=== PATIENT | male | born 1950 | race Caucasian/White ===

== ENCOUNTER → 2023-06-25 | Outpatient (CLI) | payer MEDICARE, SELFPAY ==
--- OUTSIDE RECORDS SUMMARY | 2023-06-25 10:14 | XMS RPT_ITS | CCD ---
Author Name Unknown Address [address] [place] [address] Organization [facility] Care Team Providers Care Platform Inspector Name Role Phone Jeff Gan Unavailable Benedict Leon Unavailable Unavailable Benedict Leon Unavailable Unavailable Jeff Gan Unavailable Unavailable Benedict Leon Unavailable Unavailable Benedict Leon Unavailable Unavailable Jeff Gan Unavailable Unavailable Jeff Olivera MD Primary Care Provider Jackie Romero MD Unavailable JEFF OLIVERA Primary Care Unavailable ARNULFO UMAÑA Attending Unavailable ARNULFO UMAÑA Referring Unavailable JACKIE ROMERO Admitting Unavailab JACKIE Cedeno Referring Unavailab le JEFF OLIVERA Primary Care Unavailable JACKIE ROMERO Referring Unavailab le JEFF OLIVERA Primary Care Unavailable Jeff Olivera MD Primary Care Provider [phone] Jackie Romero MD Unavailable Jeff Olivera Unavailable Dr. Jeff Olivera Primary Care Unavaila Mildred Benitez Attending Unavailable Joselin, Dr. Jeff Lazar Primary Care Unavaila Mildred Benitez Attending Unavailable Joselin, Dr. Jeff Lazar Primary Care Unavaila Mildred Benitez Attending Unavailable Joselin, Dr. Jeff Lazar Referring Unavaila ble Joselin, Dr. Jeff Lazar Primary Care Unavaila Wisam Whitley Admitting Unavailable Wisam Lou Attending Unavailable Joselin, Dr. Jeff Lazar Primary Care Unavaila Mildred Benitez Attending Unavailable Joselin, Dr. Jeff Lazar Primary Care Unavaila ble Mildred Marquez Attending Unavailable Mildred Marquez Attending Unavailable Dr. Jeff Olivera Primary Care Unavaila ble Joselin, Dr. Jeff Lazar Primary Care Unavaila Mildred Benitez Attending Unavailable Jeff Olivera Primary Care Provider JEFF OLIVERA Primary Care Unavailable AMY ROLLINS II Attending UnavailJeff Tillman MD Primary Care Provider Jackie Romero MD Unavailable ARNULFO UMAÑA Attending Unavailable JEFF OLIVERA Primary Care Unavailable ARNULFO UMAÑA Admitting Unavailable JEFF OLIVERA Primary Care Unavailable ARNULFO UMAÑA Referring Unavailable ARNULFO UMAÑA Referring Unavailable ARNULFO UMAÑA Admitting Unavailable JEFF OLIVERA Primary Care Unavailable KARSON GORE Attending Unavailable JEFF OLIVERA Primary Care Unavailable VIAKARSON Mann Attending Unavailable KARSON GORE Referring Unavailable JEFF OLIVERA Primary Care Unavailable Allergies Allergy Classification Reported Allergen(s) Allergy Type Date of Onset Reaction(s) Facility (7 sources) Penicillins; Translations: [penicillins] Propensity to adverse reactions to drug 5 Swelling [facility] Work Phone: (20 sources) Penicillins Propensity to adverse reactions to drug 5 Swelling, Hives [facility] (4 sources) Penicillins Propensity to adverse reactions to drug 5 Hives, Swelling [facility] Medications Current Medications Medication Drug Class(es) Dates Sig (Normalized) Sig (Original) acetaminophen 325 mg oral tablet (11 sources) take 1 tablet by mouth every six hours as needed for pain acetaminophen (TYLENOL) 325 MG tablet Take 325 mg by mouth every 6 (six) hours as needed for pain. 0 Active aspirin 325 mg delayed release oral tablet (20 sources) Nonsteroidal Anti-inflammatory Drug Start: 09-18-2021 End: 10-18-2021 take 1 tablet by mouth twice daily aspirin 325 MG EC tablet Take 1 (one) tablet (325 mg total) by mouth 2 (two) times a day . 60 tablet 0 09/18/2021 10/18/2021 Active Completed/Discontinued Medications Medication Drug Class(es) Dates Sig (Normalized) Sig (Original) acetaminophen 325 mg / HYDROcodone bitartrate 5 mg oral tablet (5 sources) Opioid Agonist Start: 09-18-2021 End: 09-25-2021 take 1 tablet by mouth once as needed, then take 2 tablets by mouth every four hours as needed HYDROcodone-acetamin ophen (NORCO) 5-325 mg per tablet Indications: Status post total replacement of right hip Take 1 (one) tablet to 2 (two) tablets by mouth every 4 (four) hours as needed 7 days . 40 tablet 0 09/18/2021 09/25/2021 atorvastatin 20 mg oral tablet (20 sources) HMG-CoA Reductase Inhibitor Start: 10-24-2014 atorvastatin (LIPITOR) 20 mg tablet cyclobenzaprine hydrochloride 10 mg oral tablet (8 sources) Muscle Relaxant Start: 09-18-2021 End: 09-28-2021 take 1 tablet by mouth three times daily as needed for muscle spasms cyclobenzaprine (FLEXERIL) 10 MG tablet Take 1 (one) tablet (10 mg total) by mouth 3 (three) times a day as needed for muscle spasms . 30 tablet 0 09/18/2021 09/28/2021 Esomeprazole (1 source) Proton Pump Inhibitor ESOMEPRAZOLE MAGNESIUM (NEXIUM ORAL) Take by mouth. 0 Active Problems Active Problems Problem Classification Problem Date Documented Date Episodic/Chronic Blindness and vision defects (5 sources) Bilateral regular astigmatism; Translations: [Regular astigmatism, bilateral] Onset: 11-23-2014 Episodic Cataract (3 sources) Bilateral pseudophakia; Translations: [Presence of intraocular lens] Onset: 07-23-2018 Chronic Disorders of lipid metabolism (20 sources) Hypercholesterolemia; Translations: [Pure hypercholesterolemia, unspecified] Onset: 11-15-2017 08-08-2021 Chronic Diverticulosis and diverticulitis (1 source) Diverticulosis of large intestine without perforation or abscess without bleeding; Translations: [Dvrtclos of lg int w/o perforation or abscess w/o bleeding] Onset: 03-29-2022 Chronic Essential hypertension (1 source) Hypertensive disorder; Translations: [Essential (primary) hypertension] Chronic Immunizations and screening for infectious disease (1 source) Contact with and (suspected) exposure to other viral communicable diseases; Translations: [Exposure to SARS-associated coronavirus] Episodic Osteoarthritis (20 sources) Osteoarthritis of right hip joint; Translations: [Unilateral primary osteoarthritis, right hip] Onset: 08-14-2021 Chronic Other connective tissue disease (7 sources) History of total hip arthroplasty; Translations: [Presence of right artificial hip joint] Chronic Other connective tissue disease (1 source) Peroneal tendinitis; Translations: [Peroneal tendinitis, left leg] Episodic Other connective tissue disease (8 sources) Heel pain; Translations: [Pain in limb] Episodic Other connective tissue disease (8 sources) Achilles tendinitis; Translations: [Achilles bursitis or tendinitis] Episodic Other connective tissue disease (8 sources) Peroneal tendinitis of left lower limb; Translations: [Other enthesopathy of ankle and tarsus] Episodic Other eye disorders (2 sources) Bilateral vitreous floaters; Translations: [Other vitreous opacities, bilateral] Onset: 07-23-2018 Chronic Other nervous system disorders (8 sources) Antalgic gait; Translations: [Abnormality of gait] Episodic Other non-traumatic joint disorders (1 source) Pain in right hip joint; Translations: [Pain in right hip] Episodic Other non-traumatic joint disorders (8 sources) Ankle stiff; Translations: [Stiffness of joint, not elsewhere classified, ankle and foot] Episodic Other nutritional; endocrine; and metabolic disorders (20 sources) Dyslipidemia; Translations: [Hyperlipidemia, unspecified] Onset: 06-16-2017 06-16-2017 Chronic Residual codes; unclassified (4 sources) Pain, unspecified; Translations: [Pain, unspecified] Onset: 03-07-2022 Episodic Spondylosis; intervertebral disc disorders; other back problems (2 sources) Degeneration of lumbar intervertebral disc; Translations: [Other intervertebral disc degeneration, lumbar region] 02-19-2023 Chronic Past or Other Problems Problem Classification Problem Date Documented Date Episodic/Chronic Other and unspecified benign neoplasm (3 sources) Personal history of colonic polyps; Translations: [Personal history of colonic polyps] Onset: 03-29-2022 Episodic Other connective tissue disease (1 source) Pain in left foot; Translations: [Pain in left foot] Onset: 03-06-2022 Episodic Other connective tissue disease (1 source) Achilles tendinitis, left leg; Translations: [Achilles tendinitis, left leg] Onset: 03-06-2022 Episodic Other connective tissue disease (1 source) Peroneal tendinitis, left leg; Translations: [Peroneal tendinitis, left leg] Onset: 03-06-2022 Episodic Other nervous system disorders (1 source) Other abnormalities of gait and mobility; Translations: [Other abnormalities of gait and mobility] Onset: 03-06-2022 Episodic Other nervous system disorders (1 source) Eyelid finding; Translations: [Fasciculation] Onset: 04-10-2017 04-10-2017 Episodic Other non-traumatic joint disorders (1 source) Stiffness of left ankle, not elsewhere classified; Translations: [Stiffness of left ankle, not elsewhere classified] Onset: 03-06-2022 Episodic Other screening for suspected conditions (not mental disorders or infectious disease) (2 sources) Encounter for screening for malignant neoplasm of colon; Translations: [Encounter for screening for malignant neoplasm of colon] Onset: 03-29-2022 Episodic Residual codes; unclassified (1 source) History of syncope; Translations: [Other specified personal risk factors, not elsewhere classified] Onset: 11-15-2017 11-15-2017 Episodic Residual codes; unclassified (2 sources) Pain Onset: 03-07-2022 Episodic Syncope (20 sources) Vasovagal syncope; Translations: [Syncope and collapse] Onset: 06-16-2017 06-16-2017 Episodic Results Test Name Value Interpretation Reference Range Facil ity Vital Signs Date Time Vital Sign Value Performing Clinician Facility 02-19-2023 09:32-0400 Body height 175.3 cm Karson Gore MD Work Phone: [facility] 10-04-2021 14:47-0400 Body temperature 98.4 [degF] Irish Melendez RN [facility] 10-04-2021 14:47-0400 Diastolic blood pressure 90 mm[Hg] Irish Melendez RN [facility] 10-04-2021 14:47-0400 Heart rate 90 /min Irish Melendez RN [facility] 10-04-2021 14:47-0400 Respiratory rate 18 /min Irish Melendez RN [facility] 10-04-2021 14:47-0400 SaO2% (BldA) [Mass fraction] 96 % Irish Melendez RN [facility] 10-04-2021 14:47-0400 Systolic blood pressure 138 mm[Hg] Irish Nora RN [facility] 10-02-2021 09:06-0400 Body temperature 97.2 [degF] Parmjit Quinones PT [facility] 10-02-2021 09:06-0400 Diastolic blood pressure 76 mm[Hg] Parmjit Quinones PT [facility] 10-02-2021 09:06-0400 Heart rate 90 /min Parmjit Quinones PT [facility] 10-02-2021 09:06-0400 Respiratory rate 16 /min Parmjit Quinones PT [facility] 10-02-2021 09:06-0400 SaO2% (BldA) [Mass fraction] 96 % Parmjit Quinones PT [facility] 10-02-2021 09:06-0400 Systolic blood pressure 126 mm[Hg] Parmjit Quinones PT [facility] 10-01-2021 09:50-0400 Body temperature 98.6 [degF] Narinder [facility] 10-01-2021 09:50-0400 Diastolic blood pressure 78 mm[Hg] Narinder [facility] 10-01-2021 09:50-0400 Heart rate 79 /min Narinder [facility] 10-01-2021 09:50-0400 Respiratory rate 16 /min Narinder [facility] 10-01-2021 09:50-0400 SaO2% (BldA) [Mass fraction] 96 % Narinder [facility] 10-01-2021 09:50-0400 Systolic blood pressure 121 mm[Hg] Narinder [facility] 10-01-2021 09:35-0400 Body temperature 97.9 [degF] [facility] 10-01-2021 09:35-0400 Diastolic blood pressure 70 mm[Hg] [facility] 09:35-0400 Heart rate 74 /min Leigh [facility] 10-01-2021 09:35-0400 Respiratory rate 16 /min [facility]-01-2021 09:35-0400 SaO2% (BldA) [Mass fraction] 99 % [facility]-01-2021 09:35-0400 Systolic blood pressure 132 mm[Hg] Leigh Hernandez LPN [facility] 09-27-2021 12:34-0400 Body temperature 99.19 [degF] Karson Fajardo RN [facility] 09-27-2021 12:34-0400 Diastolic blood pressure 70 mm[Hg] Karson Fajardo RN [facility] 09-27-2021 12:34-0400 Heart rate 89 /min Karson Fajardo RN [facility] 09-27-2021 12:34-0400 Respiratory rate 16 /min Karson Fajardo RN [facility] 09-27-2021 12:34-0400 SaO2% (BldA) [Mass fraction] 98 % Karson Fajardo RN [facility] 09-27-2021 12:34-0400 Systolic blood pressure 142 mm[Hg] Karson Fajardo RN [facility] 09-27-2021 10:49-0400 Body temperature 97.7 [degF] Narinder Juan Diego [employer] [facility] 09-27-2021 10:49-0400 Diastolic blood pressure 78 mm[Hg] Narinder Juan Diego [employer] [facility] 09-27-2021 10:49-0400 Heart rate 95 /min Narinder Juan Diego [employer] [facility] 09-27-2021 10:49-0400 Respiratory rate 16 /min Narinder Juan Diego [employer] [facility] 09-27-2021 10:49-0400 SaO2% (BldA) [Mass fraction] 96 % Narinder Juan Diego [employer] [facility] 09-27-2021 10:49-0400 Systolic blood pressure 136 mm[Hg] Narinder Juan Diego [employer] [facility] 09-21-2021 09:09-0400 Body temperature 97.39 [degF] Parmjit Quinones PT [facility] 09-21-2021 09:09-0400 Diastolic blood pressure 68 mm[Hg] Parmjit Quinones PT [facility] 09-21-2021 09:09-0400 Heart rate 76 /min Parmjit Quinones PT [facility] 09-21-2021 09:09-0400 Respiratory rate 16 /min Parmjit Quinones PT [facility] 09-21-2021 09:09-0400 SaO2% (BldA) [Mass fraction] 94 % Parmjit Quinones PT [facility] 09-21-2021 09:09-0400 Systolic blood pressure 122 mm[Hg] Parmjit Quinones PT [facility] 09-20-2021 09:33-0400 Body height 175.3 cm Larisa Gutierrez RN [facility] 09-20-2021 09:33-0400 Body mass index (BMI) [Ratio] 29.83 kg/m2 Larisa Gutierrez RN [facility] 09-20-2021 09:33-0400 Body temperature 98.4 [degF] Larisa Gutierrez [facility] 09-20-2021 09:33-0400 Body weight 91.63 kg Larisa Gutirerez [facility] 09-20-2021 09:33-0400 Diastolic blood pressure 64 mm[Hg] Larisa Gutierrez [facility] 09-20-2021 09:33-0400 Heart rate 76 /min Larisa Gutierrez [facility] 09-20-2021 09:33-0400 Respiratory rate 16 /min Larisa Gutierrez [facility] 09-20-2021 09:33-0400 SaO2% (BldA) [Mass fraction] 96 % Larisa Gutierrez [facility] 09-20-2021 09:33-0400 Systolic blood pressure 124 mm[Hg] Larisa Gutierrez [facility] 09-06-2021 14:14-0400 Body height 177.8 cm Jackie Romero MD Work Phone: [facility] 09-06-2021 14:14-0400 Body mass index (BMI) [Ratio] 28.84 kg/m2 Jackie Romero MD Work Phone: [facility] 09-06-2021 14:14-0400 Body weight 91.17 kg Jackie Romero MD Work Phone: [facility] 09-06-2021 14:14-0400 Diastolic blood pressure 84 mm[Hg] Jackie Romero MD Work Phone: [facility] 09-06-2021 14:14-0400 Heart rate 70 /min Jackie Romero MD Work Phone: [facility] 09-06-2021 14:14-0400 Systolic blood pressure 134 mm[Hg] Jackie Romero MD Work Phone: [facility] 08-07-2021 13:04-0500 Body height 177.8 cm Arnulfo Umaña CNP Work Phone: [facility] 08-07-2021 13:04-0500 Body mass index (BMI) [Ratio] 29.56 kg/m2 Arnulfo Umaña CNP Work Phone: [facility] 08-07-2021 13:04-0500 Body weight 93.44 kg Arnulfo Umaña CNP Work Phone: [facility] 06-11-2017 12:21-0500 BMI (Body Mass Index) 31.14 kg/m2 Nil[facility] Work Phone: 06-11-2017 12:21-0500 BP Diastolic 82 mm[Hg] [facility] Work Phone: 06-11-2017 12:21-0500 BP Systolic 134 mm[Hg] [facility] Work Phone: 06-11-2017 12:21-0500 Height 177.8 cm [facility] Work Phone: 06-11-2017 12:21-0500 Pulse (Heart Rate) 70 /min [facility] Work Phone: 06-11-2017 12:21-0500 Pulse Oximetry 94 % [facility] Work Phone: 06-11-2017 12:21-0500 Weight 98.43 kg [facility] Work Phone: Encounters Encounter Date Encounter Type Care Provider Facility Start: 02-19-2023 End: 02-20-2023 Refill Karson Gore MD Work Phone: [facility] Procedures Date Procedure Procedure Detail Performing Clinician Start: 03-29-2022 Colonoscopy Amy benoit II, OD Work Phone: Plan of Treatment Date Care Activity Detail Author Start: 02-21-2026 Tetanus vaccination Tetanus: Every 10yrs [facility] Start: 10-14-2023 Colonoscopy COLONOSCOPY [facility] Start: 03-29-2023 COLORECTAL CANCER SCREENING COLORECTAL CANCER SCREENING [facility] Start: 03-04-2023 Fall risk assessment Falls Risk Assessment [facility] Start: 02-14-2023 Influenza vaccination Sequential Influenza Vaccine (#1) [facility] Start: 06-16-2022 ADVANCE DIRECTIVE DISCUSSION ADVANCE DIRECTIVE DISCUSSION [facility] Start: 06-16-2022 DEPRESSION ASSESSMENT DEPRESSION ASSESSMENT [facility] Start: 03-29-2022 COLON, Provider: Wisam Lou, Status: Pen, Time: 10:30 AM COLON, Provider: Wisam Luo, Status: Pen, Time: 10:[address] [facility]: Start: 03-18-2022 PTRECHECKSalvador, Provider: Patricia Otto, Status: Pen, Time: 4:15 PM PTRECHECKA, Provider: Patricia Otto, Status: Pen, Time: 4:[address] [facility] Work Phone: Start: 03-11-2022 PTRECHECKA, Provider: Patricia Otto, Status: Pen, Time: 11:00 AM PTRECHECKA, Provider: Patricia Otto, Status: Pen, Time: 11:[address] [facility] Work Phone: Start: 03-06-2022 PTFUADULT4, Provider: Izzy Nolen, Status: Pen, Time: 7:00 AM PTFUADULT4, Provider: Izzy Nolen, Status: Pen, Time: 7:[address] [facility]: Start: 02-27-2022 PTFUADULT4, Provider: Izzy Nolen, Status: Pen, Time: 7:00 AM PTFUADULT4, Provider: Izzy Nolen, Status: Pen, Time: 7:00 AM [facility]: Start: 02-22-2022 PTFUADULT4, Provider: Brit King, Status: Pen, Time: 7:00 AM PTFUADULT4, Provider: Brit King, Status: Pen, Time: 7:[address] [facility] Work Phone: Start: 02-20-2022 PTFUADULT4, Provider: Izzy Nolen, Status: Pen, Time: 7:00 AM PTFUADULT4, Provider: Izzy Nolen, Status: Pen, Time: 7:[address] [facility] [facility] Work Phone: Start: 02-15-2022 PTFUADULT4, Provider: Brit King, Status: Pen, Time: 7:00 AM PTFUADULT4, Provider: Brit King, Status: Pen, Time: 7:[address] [facility] [facility] Work Phone: Start: 02-14-2022 Influenza vaccination Sequential Influenza Vaccine (#1) [facility] Start: 02-13-2022 PTFUADULT4, Provider: Izzy Nolen, Status: Pen, Time: 7:00 AM PTFUADULT4, Provider: Izzy Nolen, Status: Pen, Time: 7:[address] [facility] Work Phone: Start: 12-14-2021 End: 12-14-2021 Follow-up encounter 12/14/2021 Follow-Up Sports Medicine Jackie Romero MD [place] [id number] [facility] Start: 11-16-2021 End: 11-16-2021 Follow-up encounter 11/16/2021 Follow-Up Sports Medicine [place] [address] [facility] Start: 11-02-2021 End: 11-02-2021 Follow-up encounter 11/02/2021 Follow-Up Sports Medicine [place] [address] [facility] Start: 10-05-2021 End: 10-05-2021 Follow-up encounter 10/05/2021 Follow-Up Sports Medicine Jackie Romero MD [address] [place] [address] [facility] Start: 10-04-2021 End: 10-04-2021 Patient encounter procedure 10/04/2021 Appointment Home Health Services Katerin Delarosa RN [facility] Start: 10-04-2021 End: 10-04-2021 Home visit 10/04/2021 Home Care Visit Home Health Services Parmjit Quinones, PIPO [facility] Start: 10-04-2021 End: 10-04-2021 Patient encounter procedure 10/04/2021 Appointment Home Health Services Katerin Delarosa RN [facility] Start: 10-02-2021 End: 10-02-2021 Home visit [facility] Start: 10-01-2021 End: 10-01-2021 Home visit 10/01/2021 Home Care Visit Home Health Services Katerin Delarosa RN [facility] Start: 10-01-2021 End: 10-01-2021 Home visit 10/01/2021 Home Care Visit Home Health Services Katerin Delarosa RN [facility] Start: 09-27-2021 End: 09-27-2021 Home visit 09/27/2021 Home Care Visit Home Health Services Narinder Adamson PTA [facility] Start: 09-27-2021 End: 09-27-2021 Home visit 09/27/2021 Home Care Visit Home Health Services Katerin Delarosa RN [facility] Start: 09-25-2021 End: 09-25-2021 Home visit 09/25/2021 Home Care Visit Home Health Services Narinder Adamson PTA [facility] Start: 09-24-2021 End: 09-24-2021 Home visit 09/24/2021 Home Care Visit Home Health Services Katerin Delarosa RN [facility] Start: 09-24-2021 End: 09-24-2021 Home visit 09/24/2021 Home Care Visit Home Health Services Katerin Delarosa RN [facility] Start: 09-21-2021 End: 09-21-2021 Home visit 09/21/2021 Home Care Visit Home Health Services Parmjit Quinones, PT [facility] Start: 09-21-2021 End: 09-21-2021 ambulatory 09/21/2021 Treatment Rehabilitation Arnulfo Umaña CNP [address] [place] [address] Candice Lau, PT [facility] Start: 09-18-2021 End: 09-18-2021 Admission to same day surgery center 09/18/2021 Surgery Jackie Romero MD [address] [place] [address] Right Total Hip Replacement [facility] Payers Date Payer Category Payer Medicare [id number] 2016 Medicare MMO MANAGED [facility] C[facility] MMO MANAGED MEDICARE PPO [id number] 2016-Present [phone] [address] [place] [address] [id number] 2012 Unknown 1950 Unknown [id number] 1950 Unknown [id number] [id number] 1950 Unknown [id number] 1950 Unknown [id number] [id number] 1950 Unknown [id number] [id number] 1950 Unknown [id number] [id number] 1950 Unknown [id number] [id number] 1950 Unknown [id number] [id number] 1951 Unknown [id number] [id number] 1951 Unknown [id number] [id number] 1951 Unknown [id number] [id number] 1951 Unknown [id number] [id number] 1950 Unknown [id number] [id number] 1950 Unknown [id number] [id number] 1950 Unknown [id number] [id number]. 1950 Unknown [id number] Social History Date Type Detail Facility Start: 06-11-2017 End: 03-07-2022 Tobacco smoking status MSIS Never smoker [employer] Phone: Start: 1950 Sex Assigned At Not on file [employer] Phone: Start: 06-11-2017 End: 03-07-2022 Tobacco use and exposure Smokeless tobacco non-user [facility] Start: 08-08-2021 End: 02-19-2023 Alcohol intake Current drinker of alcohol (finding) [facility] Start: 07-28-2021 End: 12-14-2021 Exposure to SARS-CoV-2 (event) Not sure [facility] Start: 08-30-2021 History SDOH Alcohol Comment occaional [facility] Start: 09-18-2021 History SDOH Alcohol Comment occasional [facility] Start: 06-11-2017 End: 03-11-2022 Cigarette pack-years [facility] Start: 03-11-2022 Tobacco use panel [facility] Start: 08-06-2021 Gender identity Identifies as male gender (finding) [facility] Start: 08-06-2021 Sexual orientation Heterosexual (finding) [facility] Medical Equipment Procedure Code Equipment Code Equipment Origin al Text Equipment Identifier Dates Head 36mm/-2.5 F em V40 [employer] - [id number] , [id number] [facility] Start: 09-18-2021 Clinical Notes 01-09-2018 to 02-19-2023 Karson Gore MD - 02/19/2023 10:04 AM EDTPatient Kendall Rollins II, OD - 09/18/2022 8:58 AM EDTEsil Landon, ASW SPECIALIST - 10/24/2021 2:40 PM EDTNarratives Note Date & Type Note Facility 02-19-2023 History of Presen t illness Narrative [facility] [address] ([address]) [facility] [address] [facility] [id number] Rosy Munguia is a 73 y.o. male being seen today, 02/19/23, Chief Complaint Patient presents with Lower Back - Pain [chief complaint] low back pain HPI Dictation: This man reports lower back pain over the last year lower back only right-sided no radiculopathy with x-rays showing multilevel lumbar degenerative disc disease loss of his Normal lordotic curve he does take Advil is the only treatment [hpi] should be noted he denies any significant difficulty with standing or walking for any length of time Physical Exam Dictation: [PE] exam increased pain with lumbar extension paraspinal spasm no radicular symptoms Assessment and Plan Dictation: [AP] bar degenerative disc disease no clear evidence of neurogenic claudication plan I did suggest a trial of meloxicam and I will see him back as needed I have reviewed all relevant histories, medications, allergies, and problem list items with Rosy Munguia during this visit. Review of Systems Constitutional: Negative for chills and fever. HENT: Negative for congestion. Respiratory: Negative for shortness of breath. Cardiovascular: Negative for chest pain. Gastrointestinal: Negative for diarrhea, nausea and vomiting. Neurological: Negative for headaches. Psychiatric/Behavioral: Negative for behavioral problems. Ht 5' 9 BMI 29.83 kg/m Imaging: No results found. 1. Lumbar degenerative disc disease Return if symptoms worsen or fail to improve. Karson Gore MD documented in this encounter [facility] 09-18-2022 Note HNO ID: [id number] Author: Amy Rollins II, SARAH Service: ? 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 Z96.1 Pseudophakia, both eyes Comment: Posterior chamber intraocular lenses are well positioned and clear. H43.393 Vitreous floaters of both eyes Comment: Vitreal floaters stable both eyes. Retinas flat and intact with no apparent retinal tear or traction. Monitor yearly. I have confirmed and edited as necessary the relevant ophthalmic history, ROS, and the neuro exam findings as obtained by others. I have seen and examined Rosy Munguia. I have discussed the case and the management of this patient's care with the Resident/Fellow, if applicable. I also have reviewed and agree with the assessment and plan as stated above and agree with all of its relevant components. 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 Z96.1 Pseudophakia, both eyes Comment: Posterior chamber intraocular lenses are well positioned and clear. H43.393 Vitreous floaters of both eyes Comment: Vitreal floaters stable both eyes. Retinas flat and intact with no apparent retinal tear or traction. Monitor yearly. I have confirmed and edited as necessary the relevant ophthalmic history, ROS, and the neuro exam findings as obtained by others. I have seen and examined Rosy Theodore Nella. I have discussed the case and the management of this patient's care with the Resident/Fellow, if applicable. I also have reviewed and agree with the assessment and plan as stated above and agree with all of its relevant components. Amy Rollins II, OD documented in this encounter 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 Z96.1 Pseudophakia, both eyes Comment: Posterior chamber intraocular lenses are well positioned and clear. H43.393 Vitreous floaters of both eyes Comment: Vitreal floaters stable both eyes. Retinas flat and intact with no apparent retinal tear or traction. Monitor yearly. I have confirmed and edited as necessary the relevant ophthalmic history, ROS, and the neuro exam findings as obtained by others. I have seen and examined Rosy Jaimes Nella. I have discussed the case and the management of this patient's care with the Resident/Fellow, if applicable. I also have reviewed and agree with the assessment and plan as stated above and agree with all of its relevant components. Amy Rollins II, OD documented in this encounter [facility] 10-24-2021 History of Presen t illness Narrative I spoke w [place] today and he says he had no drainage yesterday and none today from his right hip incision documented in this encounter [facility] documented in this encounter [id number] Patient's home Progress note* Narratives Pt with new rash that appear ed yesterday to right medial upper thigh. Nurse is coming around noon per patient. documented in this encounter [id number] History of Present illness Narrative* Kate Landon LPN - 09/24/2021 12:13 PM EDT I spoke w [place] today and he says he is doing well. The home care nurse saw him today and changed hisdressing. He is having trouble sleeping at night on his back, he will try to lay on his left side wa pillow between his knees. His swelling is about the same. He was using ice but just started elevation of the foot above his heart yesterday. He denies any constipation, no nausea, no trouble w urination, appetite is good. He is taking 325mg ASA bid, 10mg Flexeril prn, 750mg Levaquin every day [id number] Prilosec every day. documented in this [id number] History of Present illness Narrative* Jackie Romero MD - 09/06/2021 3:09 PM EDT He comes in today for preoperative consultation regarding his right hip degenerative arthrosis. He is looking forward to the surgery. He is tired of the pain, tired of the discomfort. He said he has tried pills, shots, and therapy with no relief whatsoever. The groin pain and thigh pain have becomesevere. It is affecting every single activity of daily living including golfing. X-RAY Examination of the right hip reveals severe end-stage right hip degenerative arthrosis. ALLERGIES Penicillin. MEDICATIONS Aspirin, Lipitor, fenofibrate, Prilosec. ILLNESSES High cholesterol, high triglycerides, stomach reflux. REVIEW OF SYSTEMS Joint pain, arthralgias, hip pain, groin pain, thigh pain, history of a syncopal episode 2008. SURGERIES Appendectomy, cholecystectomy, left total knee replacement. SOCIAL HISTORY He is . Does not drink. PHYSICAL EXAM General: He is awake, alert and oriented x3. Chest: Clear. Heart: Regular rate and rhythm. Abdomen: Benign. Neck: He has no carotid bruits noted. Bilateral Lower Extremities: At this time his bilateral lower extremities are neurologically intactwith 2+ pulses, full range of motion of the ankles knees and the right hip showing pain at 100 degrees of flexion, pain at 10 degrees of internal and external rotation. IMPRESSION Severe right hip degenerative arthrosis. PLAN We will see him for right total hip replacement. All risks and complications were discussed. I havediscussed all treatment options with the patient. The patient was part of the entire decision-making process. I informed the patient we will be using Milo total hip replacement system with [employer] robotic assistance. Mental health status was assessed. Narcotic review was performed. He has no listednarcotics. He is fully vaccinated for COVID-19. documented in this [id number] History of Present illness Narrative* Kelsi Garcia, FIFTH HAND - 08/28/2021 8:30 AM EDT [facility] DAILY TREATMENT NOTE Today's Date 08/28/2021 Patient Name: Rosy Munguia Date of : 1950 Current Visit #: 5 Authorized Visits: 199 Case Name: Osteoarthritis of right hip, History: Pre-Treatment Pain Scale: 7 Symptoms: gradually worsened Functional Diagnosis: 1. Primary osteoarthritis of right hip Clinical Information: Subjective: He was informed he's having his hip replacement on September 18. Joint camp this . Objective His pain yesterday was 11/10 d/t being on his feet for long periods of time. Hip abd strength 4-/5. Treatments: Physical Therapy Exercise Log - 08/28/21 0859 OTHER Precautions/Contraindications R hip prehab Notes verbal HEp (provide written NV) Vitals visit 5: 8:20-9:00 Therapeutic Exercise (15253) Intervention seated forward bending 10 Parameters LTR 5 (back bothering him and stopped at 5 )pain Intervention Hip add /abd x20 GTB /ball squeeze Parameters Traction long axis 10 x3 good relief Intervention standing pelvis rocking side to side 10 Parameters glute squeeze 5 x 10 Intervention Scifit 7' (gentle) Parameters manual lateral distractions x3 30 mild relief Intervention standing gastroc stretch in // bars x5 Parameters rockerboard x20 PT Treatment Times Therex Total Time 38 Direct Treatment Time 38 Total Treatment Time 38 Goals: Physical Therapy Ortho Goals: The patient will safely, correctly and independently demonstrate the ability to perform a progressive HEP to achieve maximal rehabilitation potential and prevent this condition from recurring. The patient will demonstrate reduced pain level 2 points from 4-8/10 at Hip to increase tolerance to do Functional activities. 6 weeks The patient will demonstrate increase Hip IR and ER ROM for ease of hip motion. 6 weeks The patient will demonstrate R Hip strength 5/5 to increase tolerance to perform functional activities without taking frequent rest breaks. 6 weeks. Patient will increase FOTO score to at least 63 (predicted) from 44 to show MDC/MCII and expected functional outcome. 6 weeks Patient Education: Quality of movement with patient demonstrated understanding. Post-Treatment Pain Scale: 7 Assessment: Patient had an expected response to treatment. Skilled Intervention demonstrated by modifications of treatment per exercise log including increased intensity and safety interventions per exercise log. Progress towards goals as expected. Plan for Next Visit: Treatment Visit with focus on further evaluation Kelsi Garcia PTA STATE LICENSE, [id number] documented in this [id number] History of Present illness Narrative* Kelsi Garcia PTA - 08/24/2021 7:45 AM EST [facility] DAILY TREATMENT NOTE Today's Date 08/24/2021 Patient Name: Rosy Munguia Date of : 1950 Current Visit #: 4 Authorized Visits: 199 Case Name: Osteoarthritis of right hip, History: Pre-Treatment Pain Scale: 6 Symptoms: stabilized Functional Diagnosis: 1. Primary osteoarthritis of right hip Clinical Information: Subjective: he's been pushing himself to try and get stronger. Objective Added standing gastroc stretches with good tolerance Treatments: Physical Therapy Exercise Log - 08/24/21 0852 OTHER Precautions/Contraindications R hip prehab Notes verbal HEp (provide written NV) Vitals visit 3: 7:45-8:25 Therapeutic Exercise (77408) Intervention seated forward bending 10 Parameters LTR 5 (back bothering him and stopped at 5 )pain Intervention Hip add /abd x20 GTB /ball squeeze Parameters Traction long axis 10 x3 good relief Intervention standing pelvis rocking side to side 10 Parameters glute squeeze 5 x 10 Intervention Scifit 7' (gentle) Parameters manual lateral distractions x3 30 mild relief Intervention standing gastroc stretch in // bars x5 Parameters rockerboard x20 PT Treatment Times Therex Total Time 38 Direct Treatment Time 38 Total Treatment Time 38 Goals: Physical Therapy Ortho Goals: The patient will safely, correctly and independently demonstrate the ability to perform a progressive HEP to achieve maximal rehabilitation potential and prevent this condition from recurring. The patient will demonstrate reduced pain level 2 points from 4-8/10 at Hip to increase tolerance to do Functional activities. 6 weeks The patient will demonstrate increase Hip IR and ER ROM for ease of hip motion. 6 weeks The patient will demonstrate R Hip strength 5/5 to increase tolerance to perform functional activities without taking frequent rest breaks. 6 weeks. Patient will increase FOTO score to at least 63 (predicted) from 44 to show MDC/MCII and expected functional outcome. 6 weeks Patient Education: Quality of movement with patient demonstrated understanding. Post-Treatment Pain Scale: 4 Assessment: Patient had an expected response to treatment. Skilled Intervention demonstrated by modifications of treatment per exercise log including increased load and safety interventions per exercise log. Progress towards goals as expected. Plan for Next Visit: Treatment Visit with focus on strengthening and stretching Kelsi Garcia PTA STATE LICENSE, [id number] documented in this [id number] History of Present illness Narrative* Kelsi Garcia PTA - 08/21/2021 7:45 AM EST [facility] DAILY TREATMENT NOTE Today's Date 08/21/2021 Patient Name: Rosy Munguia Date of : 1950 Current Visit #: 3 Authorized Visits: 199 Case Name: Osteoarthritis of right hip, History: Pre-Treatment Pain Scale: 8 Symptoms: gradually worsened Functional Diagnosis: 1. Primary osteoarthritis of right hip Clinical Information: Subjective: he has pain with all movements. Walking, ADL's, getting in/out of car. Objective Pain increase with all stretches and transfers. Pain relief with supine position and knees bent. Treatments: Physical Therapy Exercise Log - 08/21/21812 OTHER Precautions/Contraindications R hip prehab Notes verbal HEp (provide written NV) Therapeutic Exercise (92417) Intervention seated forward bending 10 Parameters LTR 5 (back bothering him and stopped at 5 )pain Intervention Hip add 5 x10 (groin pain) Parameters Traction long axis 10 x3 good relief Intervention standing pelvis rocking side to side 10 Parameters glute squeeze 5 x 10 Intervention Scifit 7' (gentle) Parameters manual lateral distractions x3 30 mild relief PT Treatment Times Therex Total Time 30 Direct Treatment Time 30 Total Treatment Time 30 Goals: Physical Therapy Ortho Goals: The patient will safely, correctly and independently demonstrate the ability to perform a progressive HEP to achieve maximal rehabilitation potential and prevent this condition from recurring. The patient will demonstrate reduced pain level 2 points from 4-8/10 at Hip to increase tolerance to do Functional activities. 6 weeks The patient will demonstrate increase Hip IR and ER ROM for ease of hip motion. 6 weeks The patient will demonstrate R Hip strength 5/5 to increase tolerance to perform functional activities without taking frequent rest breaks. 6 weeks. Patient will increase FOTO score to at least 63 (predicted) from 44 to show MDC/MCII and expected functional outcome. 6 weeks Patient Education: Quality of movement with patient demonstrated understanding. Post-Treatment Pain Scale: 8 Assessment: Patient had an expected response to treatment. Skilled Intervention demonstrated by modifications of treatment per exercise log including increased intensity and safety interventions per exercise log. Progress towards goals as expected. Plan for Next Visit: Treatment Visit with focus on pain control Kelsi Garcia PTA STATE LICENSE, [id number] documented in this [id number] History of Present illness Narrative* Tonia Montana PTA - 08/17/2021 7:00 AM EST [facility] DAILY TREATMENT NOTE Today's Date 08/17/2021 Patient Name: Rosy Munguia Date of : 1950 Current Visit #: 2 Authorized Visits: 199 Case Name: Osteoarthritis of right hip, History: Pre-Treatment Pain Scale: 4 Symptoms: gradually worsened Functional Diagnosis: 1. Primary osteoarthritis of right hip Clinical Information: Subjective: Patient reports he was in a lot pain following IE for 2 hours, he took Advil for relief. He admits that is HEP is causing pain. The exercises that provide relief he is completing twice a day. Objective Patient completes exercises per flow sheet. Added glute squeeze and Sci Fit with good tolerance. Patient given HEP handout and verbal instruction. Treatments: Physical Therapy Exercise Log - 08/17/21 0705 OTHER Precautions/Contraindications R hip prehab Notes verbal HEp (provide written NV) Therapeutic Exercise (17929) Intervention seated forward bending 10 Parameters LTR 5 (back bothering him and stopped at 5 ) Intervention Hip add 5 x10 (groin pain) Parameters Traction long axis 10 x3 good relief Intervention standing pelvis rocking side to side 10 Parameters glute squeeze 5 x 10 Intervention Scifit 5' (gentle) PT Treatment Times Therex Total Time 30 Direct Treatment Time 30 Total Treatment Time 30 Goals: Physical Therapy Ortho Goals: The patient will safely, correctly and independently demonstrate the ability to perform a progressive HEP to achieve maximal rehabilitation potential and prevent this condition from recurring. The patient will demonstrate reduced pain level 2 points from 4-8/10 at Hip to increase tolerance to do Functional activities. 6 weeks The patient will demonstrate increase Hip IR and ER ROM for ease of hip motion. 6 weeks The patient will demonstrate R Hip strength 5/5 to increase tolerance to perform functional activities without taking frequent rest breaks. 6 weeks. Patient will increase FOTO score to at least 63 (predicted) from 44 to show MDC/MCII and expected functional outcome. 6 weeks Patient Education: Verbal HEP with patient demonstrated understanding. Post-Treatment Pain Scale: 4 Assessment: Patient had an expected response to treatment. Focused on completing exercises within atolerable range. Relief noted with seated forward trunk bending and sicfit bike. Significant pain with trunk rotation and standing pelvic rocking. Skilled Intervention demonstrated by modifications of treatment per exercise log including increased intensity and safety interventions per exercise log. Progress towards goals as expected. Plan for Next Visit: Treatment Visit with focus on improving therex tolerance, increasing ROM and strength. TONIA MONTANA PTA STATE LICENSE, [id number] documented in this [id number] History of Present illness Narrative* Candice Lau, PT - 08/14/2021 11:30 AM EST Images from the original note were not included. [facility] Evaluation Today's Date 08/14/2021 Patient Name: Rosy Munguia Date of : 1950 Case Name: Osteoarthritis of right hip, Functional Diagnosis: 1. Osteoarthritis of right hip, unspecified osteoarthritis type 2. Primary osteoarthritis of right hip Clinical Information: Subjective Referring Diagnosis: Osteoarthritis of right hip History of Present Illness Subjective History: Pt reports pain in front of R hip from groin to knee started a year ago with worsening now as pain is constant. Pt saw chiropractor 2 months ago for back pain and told him that pain is from hip. Pain on lateral side of R hip goes down to thigh up to knee with standing, walking 20 mins, sitting with knee bend, driving, stairs. Uses heating pad at night with good pain relief. 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 Pain Scale: Pain location: hip (R hip) Average Pain: 4/10 Pain at highest: 8/10 Aggravating factors: weight bearing, sitting long time Easing factors: advil, heating pad at night (good relief) Personal Goals: Wants get new hip Functional Mobility Status Functional Limitations: limited mobility, recent decline in level of ADL and standing patient reported Social Support: Patient lives with others. 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 Zoroastrianism, social, or cultural considerations to be made aware of before starting treatment: No Home Environment: Current Home Environment: Current Entry: steps to enter Sleep Assessment Sleep disturbance: no Sleep Disturbance Barriers to Care: Chronicity or severity of impairments Fall risk screening Fallen 2 or more times in the last 12 months: No (knee gives out after 15 mins of walking ) Injured as a result of a fall in the last 12 months: No Zoroastrianism, social, or cultural considerations to be made aware of before starting treatment: No Lumbar Spine Gait: antalgic Special Tests SLR R limited due to pain in r groin Hip Right Hip Right hip wfl: keeps r leg extended. Tenderness: anterior and greater trochanter Range of Motion: Flexion Active: 110 Abduction Active: 30 IR Active: 10 ER Active: 30 Muscle Strength: Flexion: 4- Extension: 4- Abduction: 3+ IR: 3 ER: 3 Special Tests Tameka: Positive Gait: antalgic Knee Right Knee Right Knee WFL Treatments: Physical Therapy Exercise Log - 08/14/21 1210 OTHER Precautions/Contraindications R hip prehab Notes verbal HEp (provide written NV) Therapeutic Exercise (34951) Intervention seated forward bending 10 Parameters LTR 5 (back bothering him and stopped at 5 ) Intervention Hip add 5 x10 (groin pain) Parameters Traction long axis 10 x3 good relief Intervention standing pelvis rocking side to side 10 Treatment Plan: Frequency of Visits: twice per week Duration: 6 weeks Interventions: Therapeutic Exercise (62279), Manual Therapy (51399), Gait Training (51810) and Hot/Cold Pack (76480) Rehab Potential: fair Goals: Physical Therapy Ortho Goals: The patient will safely, correctly and independently demonstrate the ability to perform a progressive HEP to achieve maximal rehabilitation potential and prevent this condition from recurring. The patient will demonstrate reduced pain level 2 points from 4-8/10 at Hip to increase tolerance to do Functional activities. 6 weeks The patient will demonstrate increase Hip IR and ER ROM for ease of hip motion. 6 weeks The patient will demonstrate R Hip strength 5/5 to increase tolerance to perform functional activities without taking frequent rest breaks. 6 weeks. Patient will increase FOTO score to at least 63 (predicted) from 44 to show MDC/MCII and expected functional outcome. 6 weeks Patient Education provided: Patient was educated about the condition, precautions, and physical therapy plan of care. Clinical Impression: Pt is a 71 y.o. year old male who presented to the clinic with r Hip and thighpain. Upon assessment, pt has been found with the following impairments: Pain, decreased ROM; decreased strength, endurance and coordination; impaired gait, balance, tolerance to do activities. 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 Pt to be discharged from OP PT services if/when goals are met, if they fail to make progress with conservative management in PT, if their level of progress plateaus, or if they do not maintain compliance with attendance or HEP. At this time, it is my clinical judgment that services are medically necessary. Candice Lau PT STATE LICENSE, [id number] documented in this [id number] History of Present illness Narrative* Arnulfo Umaña, [employer] - 08/08/2021 12:32 PM EST Rosy Jaimes Nella 1950 CC: 71 y.o. is a he with right hip pain. Chief Complaint Patient presents with Right Hip - Pain . HPI: Hip Pain Patient presents to the office today with right hip pain. He states that he has had pain on and off for the last year but the last couple of months it is more constant and worsening. Hereports pain in the groin and front of his thigh. He also reports decreased range of motion in the left hip, most difficulty with getting socks and shoes on. He has tried Advil which does help but doesn't keep him pain free. He went to the chiropractor 3 times and then ended up at his pcp office, who ordered x-rays of the hip. He was told that he has arthritis and he needs to follow up with orthopedics. The patient's past medical history, surgical history, social history, family history, medications and allergies were reviewed with the patient today and are available in the chart for further review. PMH: Allergies Allergen Reactions Penicillins Swelling Current Outpatient Medications: aspirin 81 MG EC tablet, Take 81 mg by mouth daily., Disp: , Rfl: atorvastatin (LIPITOR) 20 MG tablet, Take 20 mg by mouth daily., Disp: , Rfl: fenofibrate 160 MG tablet, Take 160 mg by mouth daily Give with food ., Disp: , Rfl: omeprazole (PRILOSEC) 40 MG capsule, Take 40 mg by mouth daily., Disp: , Rfl: Past Medical History: Diagnosis Date Hyperlipidemia Syncope Around 8 episodes since [id number] Past Surgical History: Procedure Laterality Date APPENDECTOMY CHOLECYSTECTOMY TOTAL KNEE REPLACEMENT ( MILO TRIATHALON) Left Social History Socioeconomic History Marital status: Tobacco Use Smoking status: Never Smoker Smokeless tobacco: Never Used Substance and Sexual Activity Alcohol use: Yes Drug use: No ROS: Review of Systems Constitutional: Negative for activity change and fatigue. HENT: Negative for congestion, hearing loss and trouble swallowing. Eyes: Negative for visual disturbance. Respiratory: Negative for chest tightness and shortness of breath. Cardiovascular: Negative for chest pain and palpitations. Gastrointestinal: Negative for abdominal pain, diarrhea, nausea and vomiting. Endocrine: Negative for polydipsia, polyphagia and polyuria. Genitourinary: Negative for decreased urine volume, difficulty urinating and hematuria. Musculoskeletal: Positive for arthralgias, gait problem and myalgias. Negative for joint swelling. Skin: Negative for color change, rash and wound. Allergic/Immunologic: Negative for immunocompromised state. Neurological: Negative for dizziness, weakness, light-headedness and numbness. Hematological: Does not bruise/bleed easily. Psychiatric/Behavioral: Negative for confusion and sleep disturbance. The patient is not nervous/anxious. PE: Physical Exam Constitutional: Appearance: He is well-developed. HENT: Head: Normocephalic. Eyes: Pupils: Pupils are equal, round, and reactive to light. Cardiovascular: Rate and Rhythm: Normal rate and regular rhythm. Pulmonary: Effort: Pulmonary effort is normal. Breath sounds: Normal breath sounds. Abdominal: General: Bowel sounds are normal. Palpations: Abdomen is soft. Musculoskeletal: General: Tenderness present. Cervical back: Normal range of motion and neck supple. Right hip: Decreased range of motion. Decreased strength. Skin: General: Skin is warm and dry. Neurological: Mental Status: He is alert and oriented to person, place, and time. ORTHO: Right Hip Exam Tenderness The patient is experiencing tenderness in the anterior and lateral. Range of Motion Right hip external rotation: 12 degrees with pain. Right hip internal rotation: 8 degrees with pain. Muscle Strength The patient has normal right hip strength. Abduction: 5/5 Adduction: 5/5 Flexion: 5/5 Tests TAMEKA: positive Deidre: negative Other Erythema: absent Scars: absent Sensation: normal Pulse: present Imaging: R Hip: No acute fracture or dislocation. Severe degenerative changes to the right hip. Assessment/Plan: After examination and reviewing of the patient x-ray images, we discussed treatment options. At this time, I did inform the patient that he would most benefit from a right total hip replacement. He is in agreement and wishes to proceed with this as soon as he can. I am starting himin outpatient physical therapy although I don't believe this will be of any help given the severityof the hip. I am concerned that aggressive physical therapy could worsen the hip and lead to increased instability. The office will contact him to schedule his surgery. I am more than happy to see him back if needed prior to his surgery. He verbalizes understanding and is in agreement with the treatment plan. Diagnosis: Problem List Items Addressed This Visit None Visit Diagnoses Osteoarthritis of right hip, unspecified osteoarthritis type - Primary Relevant Orders Ambulatory Ref to [facility] (PT/OT/ST) Right hip pain Follow Up: documented in this [id number] History of Past illness Narrative* Problem Noted Date Resolved Date Corneal epithelial defect 01/09/20182017 Left corneal abrasion 01/08/2018 01/27/2018 Retinal hemorrhage 11/23/2014 04/10/2017 documented as of this encounter (statuses as of 09/18/2022) [facility] Diagnosis Osteoarthritis of right hip, unspecified osteoarthritis type- Primary Right hip pain Pain in joint, pelvic region and thigh [facility] Osteoarthritis of right hip, unspecified osteoarthritis type [facility] Diagnosis Primary oste[facility] of right hip- Primary [facility] Diagnosis Primary osteoarthritis of right hip- Primary [facility] Diagnosis Primary osteoarthritis of right hip- Primary [facility] Diagnosis Osteoarthritis of right hip, unspecified osteoarthritis type- Primary Hypertension, unspecified type Exposure to SARS-associated coronavirus Primary osteoarthritis of right hip- Primary [facility]* Diagnosis Primary osteoarthritis of right hip- Primary Primary osteoarthritis of right hip- Primary Osteoarthritis of right hip, unspecified osteoarthritis type [facility]* Diagnosis Primary osteoarthritis of right hip- Primary Osteoarthritis of right hip, unspecified osteoarthritis type- Primary Osteoarthritis of right hip, unspecified osteoarthritis type [facility]* Diagnosis Status post total replacement of right hip- Primary [facility] Diagnosis Status post total replacement of right hip- Primary [facility] Diagnosis Status post total replacement of right hip- Primary [facility] Diagnosis Status post total replacement of right hip- Primary [facility] Diagnosis Status post total replacement of right hip- Primary [facility] Diagnosis Status post total replacement of right hip- Primary Peroneal tendinitis of lower leg, left [facility] Diagnosis Status post total replacement of right hip- Primary [facility] Diagnosis Regular astigmatism of both eyes- Primary Regular astigmatism Pseudophakia, both eyes Lens replaced by other means Vitreous floaters of both eyes [facility]* Diagnosis Lumbar degenerative disc disease- Primary [facility] Diagnosis Lumbar degenerative disc disease- Primary [facility] Mr. MUNGUIA presents with signs and symptoms consistent with and demonstrates impairments/limitations in . They would benefit from skilled Physical Therapy with combination of manual therapy techniques to decrease myofascial and joint restrictions, as well as progression of exercises for ROM, flexibility, strength, core stabilization, and glute retraining, and body mechanics education throughout POC to progress towards independence with ADL s/IADL s and return to PLOF. * Clinical Presentation: Stable and/or uncomplicated characteristics. * Level of Complexity: low * Problem List: balance, decreased functional level, fall risk, flexibility, gait/locomotion, motor function/control/tone, pain, participation restrictions, posture, range of motion/joint mobility, strength and transfers. [facility] Work Phone: History of Present illness Narrative* Mr. MUNGUIA presents with signs and symptoms consistent with Left achilles and peroneal tendinitis,Left heel pain, and stiffness in Left ankle with Antalgic gait and demonstrates impairments/limitations in Left ankle AROM/PROM, decreased flexibility at gastroc/soleus complex, mild decrease in MMT at Left foot/ankle musculature compared to Right. Significant myofascial restriction throughout Leftlower leg musculature, most notably in peroneals, posterior tib, and plantar fascia, as well as gastroc/soleus complex. Pt responded well to brief STM performed after eval this date and reported goodunderstanding of all edu and HEP with HO given. They would benefit from skilled Physical Therapy with combination of manual therapy techniques to decrease myofascial and joint restrictions, as well as progression of exercises for ROM, flexibility, strength, core stabilization, and glute retraining,and body mechanics education throughout POC to progress towards independence with ADL s/IADL s and return to PLOF. * Clinical Presentation: Stable and/or uncomplicated characteristics. * Level of Complexity: low * Problem List: activity limitations, ADLs/IADLs/self care skills, balance, decreased functional level, fall risk, flexibility, gait/locomotion, motor function/control/tone, pain, participation restrictions, posture, range of motion/joint mobility, strength and transfers. [facility] Work Phone: History of Present illness NarrativePatient identified by name and date of . Patient required fingertip assistance to maintain balance with SLS with moderate sway noted. He was able to progress with addition standing balance activities and resisted toe crunches. He presented with palpable tension in plantar of foot with increasein his heal area this date. Applied tape this date with use of adhesive spray. [facility] Work Phone: History of Present illness Narrative* Patient identified by name and * Patient appropriately challenged. Patient tolerates progressions with mild fatigue noted throughoutstanding exercises. Patient demo's toe touch during SLS and able to self correct with fingertip assist. Applied KT tape this date with adhesive spray. [facility] Work Phone: History of Present illness NarrativePatient identified by name and date of . Patient demonstrated good tolerance to treatment. He presented with palpable tension/adhesions in plantar of L foot that responded well to STW. He reviewed HEP and use of ice he demonstrated good understanding. Applied KT tape this date with adhesive spray per patient request he reported he feels increased stability with tape applied. [facility] [employer] Work Phone: History of Present illness NarrativePatient identified by name and date of . Patient demonstrated tenderness to the touch above calcaneus back to achilles this date. He presented with decreased adhesions/tension in plantar of L foot and demonstrated increased tolerance with STW. He was able to progress with use of Airex with balance activities this date and required cues to preform to resisted toe curls with proper form and rep s. Instructed and provided handout for ice massage, he verbalized good understanding. [facility] Work Phone: patient's home Plan of care note* Visit Details Visit Type -SN HH OASIS [place] t of Care Discipline -Assisted Problems Problem Start Date Status Goals Interventions Assess and Instruct Home Visit Disciplines: Assisted 09/20/2021 Active 1 goal linked to scheduled/documented intervention 4 goal interventions scheduled/documented in this visit Medication Management Disciplines: Assisted 09/20/2021 Active 1 goal linked to scheduled/documented intervention 1 problem intervention scheduled/documented in this visit 1 goal intervention scheduled/documented in this visit Pain Management Disciplines: Assisted 09/20/2021 Active 1 goal linked to scheduled/documented intervention 1 goal intervention scheduled/documented in this visit Wound Care and/or Skin Problems Disciplines: Assisted 09/20/2021 Active 1 goal linked to scheduled/documented intervention 1 goal intervention scheduled/documented in this visit Gastrointestinal Disciplines: Assisted 09/20/2021 Active 1 goal linked to scheduled/documented intervention 1 goal intervention scheduled/documented in this visit Circulation Disciplines: Assisted 09/20/2021 Active 1 goal linked to scheduled/documented intervention 1 goal intervention scheduled/documented in this visit Goals Goal Associated Problem Outcome Goal Met? Visit Notes Home Care Plan Assess and Instruct Home Visit No Medications Medication Management No Pain Pain Management No Wound/Incision Wound Care and/or Skin Problems No Gastrointestinal Gastrointestinal No Circulation Circulation No Interventions Intervention Associated Problem/Goal Status Variance Visit Notes Falls Problem:Assess and Instruct Home Visit Goal:Home Care Plan Completed Clinician taught: patient and caregiver 4-10 Patient IS at risk for falls (a score of 6 or greater is a predictor of future falls) and clinician instructed: proper footwear, improved lighting, remove clutter and throw rugs, safe cord/tubing management (O2, IV, Electrical, Pineda), assistive device usage and keep frequently used items in reach Patient/caregiver was able to demonstrate 75% via teachback Safety Problem:Assess and Instruct Home Visit Goal:Home Care Plan Completed Assessed patient vulnerability and home safety risks: Yes Equipment reviewed walker Patient at risk for harm or abuse No Family members involved in safety plan for Level 2 or 3 Discharge Planning Problem:Assess and Instruct Home Visit Goal:Home Care Plan Completed Home Visit DC Planning: Spoke with patient and caregiver about DC planning. Assessed for limited ambulation related to post-op pain and weakness DC will occur when: patient/caregiver can teach back care Anticipate DC: Early Patient and/or caregiver response to discharge planning education: Agree Plan for Next Visit Problem:Assess and Instruct Home Visit Goal:Home Care Plan Completed Follow up education for next visit: Medications Skilled intervention at next visit: CP/wound assesment. Instruct Medication Management Problem:Medication Management Goal:Medications Completed Home Visit Med Education: Medication list reconciled. Medication profile and in-home medication list updated with appropriate changes. Discrepanices noted during home visit: none Instructed patient on dosing, purpose, and side effects. Medication education completed today on all medication(s). Patient/caregiver is able to teach back 75% of instruction. Education, bleeding precautions Problem:Medication Management Completed Assess Pain Characteristics and Current Pain Regimen and Instruct Methods of Pain Relief Problem:Pain Management Goal:Pain Completed Wound/Incision Problem:Wound Care and/or Skin Problems Goal:Wound/Incision Completed Patient reports: dressing intact Clinician taught: patient and caregiver Clinician instructed on: When to call for change Patient/caregiver is able to teach back/demonstrate given instruction including signs and symptoms of infection. Instruct Alteration in GI Function Problem:Gastrointest inal Goal:Gastrointestina l Completed Patient reports: bm yesterday Clinician taught: patient and caregiver Clinician instructed on: management Patient/caregiver is able to teach back 75% of instruction. Instruct on Alteration in Circulation Problem:Circulation Goal:Circulation Completed Patient reports: right leg edema Clinician taught: patient and caregiver Clinician instructed on: ice and elevation Patient/caregiver is able to teach back 75% of instruction. [facility]* Visit Details Visit Type -SN OASIS [place] t of Care Discipline -Assisted Problems Problem Start Date Status Goals Interventions Assess and Instruct Home Visit Disciplines: Assisted 09/20/2021 Active 1 goal linked to scheduled/documented intervention 4 goal interventions scheduled/documented in this visit Medication Management Disciplines: Assisted 09/20/2021 Active 1 goal linked to scheduled/documented intervention 1 problem intervention scheduled/documented in this visit 1 goal intervention scheduled/documented in this visit Pain Management Disciplines: Assisted 09/20/2021 Active 1 goal linked to scheduled/documented intervention 1 goal intervention scheduled/documented in this visit Wound Care and/or Skin Problems Disciplines: Assisted 09/20/2021 Active 1 goal linked to scheduled/documented intervention 1 goal intervention scheduled/documented in this visit Gastrointestinal Disciplines: Assisted 09/20/2021 Active 1 goal linked to scheduled/documented intervention 1 goal intervention scheduled/documented in this visit Circulation Disciplines: Assisted 09/20/2021 Active 1 goal linked to scheduled/documented intervention 1 goal intervention scheduled/documented in this visit Goals Goal Associated Problem Outcome Goal Met? Visit Notes Home Care Plan Assess and Instruct Home Visit No Medications Medication Management No Pain Pain Management No Wound/Incision Wound Care and/or Skin Problems No Gastrointestinal Gastrointestinal No Circulation Circulation No Interventions Intervention Associated Problem/Goal Status Variance Visit Notes Falls Problem:Assess and Instruct Home Visit Goal:Home Care Plan Completed Clinician taught: patient and caregiver 4-10 Patient IS at risk for falls (a score of 6 or greater is a predictor of future falls) and clinician instructed: proper footwear, improved lighting, remove clutter and throw rugs, safe cord/tubing management (O2, IV, Electrical, Pineda), assistive device usage and keep frequently used items in reach Patient/caregiver was able to demonstrate 75% via teachback Safety Problem:Assess and Instruct Home Visit Goal:Home Care Plan Completed Assessed patient vulnerability and home safety risks: Yes Equipment reviewed walker Patient at risk for harm or abuse No Family members involved in safety plan for Level 2 or 3 Discharge Planning Problem:Assess and Instruct Home Visit Goal:Home Care Plan Completed Home Visit DC Planning: Spoke with patient and caregiver about DC planning. Assessed for limited ambulation related to post-op pain and weakness DC will occur when: patient/caregiver can teach back care Anticipate DC: Early Patient and/or caregiver response to discharge planning education: Agree Plan for Next Visit Problem:Assess and Instruct Home Visit Goal:Home Care Plan Completed Follow up education for next visit: Medications Skilled intervention at next visit: CP/wound assesment. Instruct Medication Management Problem:Medication Management Goal:Medications Completed Home Visit Med Education: Medication list reconciled. Medication profile and in-home medication list updated with appropriate changes. Discrepanices noted during home visit: none Instructed patient on dosing, purpose, and side effects. Medication education completed today on all medication(s). Patient/caregiver is able to teach back 75% of instruction. Education, bleeding precautions Problem:Medication Management Completed Assess Pain Characteristics and Current Pain Regimen and Instruct Methods of Pain Relief Problem:Pain Management Goal:Pain Completed Wound/Incision Problem:Wound Care and/or Skin Problems Goal:Wound/Incision Completed Patient reports: dressing intact Clinician taught: patient and caregiver Clinician instructed on: When to call for change Patient/caregiver is able to teach back/demonstrate given instruction including signs and symptoms of infection. Instruct Alteration in GI Function Problem:Gastrointest inal Goal:Gastrointestina l Completed Patient reports: bm yesterday Clinician taught: patient and caregiver Clinician instructed on: management Patient/caregiver is able to teach back 75% of instruction. Instruct on Alteration in Circulation Problem:Circulation Goal:Circulation Completed Patient reports: right leg edema Clinician taught: patient and caregiver Clinician instructed on: ice and elevation Patient/caregiver is able to teach back 75% of instruction. documented in this encounter [facility] [place] Plan of care note* Visit Details Visit Type -PT Initial Evalu ation Discipline -Physical Therapy Problems Problem Start Date Status Goals Interventions Assess and Instruct Home Visit Disciplines: Physical Therapy 09/21/2021 Active 2 goals linked to scheduled/documented interventions 4 goal interventions scheduled/documented in this visit Goals Goal Associated Problem Outcome Goal Met? Visit Notes Medications Assess and Instruct Home Visit No Home Care Plan Assess and Instruct Home Visit No Interventions Intervention Associated Problem/Goal Status Variance Visit Notes Instruct Medication Management Problem:Assess and Instruct Home Visit Goal:Medications Scheduled Falls Problem:Assess and Instruct Home Visit Goal:Home Care Plan Scheduled Safety Problem:Assess and Instruct Home Visit Goal:Home Care Plan Scheduled Plan for Next Visit Problem:Assess and Instruct Home Visit Goal:Home Care Plan Scheduled documented in this encounter [facility] Plan of care note* Visit Details Visit Type -SN HH Routine Vi sit Discipline -Assisted Problems Problem Start Date Status Goals Interventions Assess and Instruct Home Visit Disciplines: Assisted 09/20/2021 Active 1 goal linked to scheduled/documented intervention 4 goal interventions scheduled/documented in this visit Medication Management Disciplines: Assisted 09/20/2021 Active 1 goal linked to scheduled/documented intervention 1 problem intervention scheduled/documented in this visit 1 goal intervention scheduled/documented in this visit Pain Management Disciplines: Assisted 09/20/2021 Active 1 goal linked to scheduled/documented intervention 1 goal intervention scheduled/documented in this visit Wound Care and/or Skin Problems Disciplines: Assisted 09/20/2021 Active 1 goal linked to scheduled/documented intervention 1 goal intervention scheduled/documented in this visit Gastrointestinal Disciplines: Assisted 09/20/2021 Active 1 goal linked to scheduled/documented intervention 1 goal intervention scheduled/documented in this visit Circulation Disciplines: Assisted 09/20/2021 Active 1 goal linked to scheduled/documented intervention 1 goal intervention scheduled/documented in this visit Goals Goal Associated Problem Outcome Goal Met? Visit Notes Home Care Plan Assess and Instruct Home Visit No Medications Medication Management No Pain Pain Management No Wound/Incision Wound Care and/or Skin Problems No Gastrointestinal Gastrointestinal No Circulation Circulation No Interventions Intervention Associated Problem/Goal Status Variance Visit Notes Falls Problem:Assess and Instruct Home Visit Goal:Home Care Plan Completed Clinician taught: patient and caregiver 4-10 Patient IS at risk for falls (a score of 6 or greater is a predictor of future falls) and clinician instructed: assistive device usage, keep frequently used items in reach and emergency response system and/or keep phone on you Patient/caregiver was able to demonstrate 100% via teachback Safety Problem:Assess and Instruct Home Visit Goal:Home Care Plan Completed Assessed patient vulnerability and home safety risks: none Equipment reviewed walker Patient at risk for harm or abuse no Family members involved in safety plan for Level 2 or 3 n/a Discharge Planning Problem:Assess and Instruct Home Visit Goal:Home Care Plan Completed Planned discharge from next . Pt has f/u with Dr Romero next Friday. Plan for Next Visit Problem:Assess and Instruct Home Visit Goal:Home Care Plan Completed CP assess, VS, monitor dressing/wound care, medication education Instruct Medication Management Problem:Medication Management Goal:Medications Completed Home Visit Med Education: Medication list reconciled. Medication profile and in-home medication list updated with appropriate changes. Discrepanices noted during home visit: none Instructed patient on dosing, purpose, and side effects. Medication education completed today on all medication(s). Patient/caregiver is able to teach back 100% of instruction. Education, bleeding precautions Problem:Medication Management Completed Assess Pain Characteristics and Current Pain Regimen and Instruct Methods of Pain Relief Problem:Pain Management Goal:Pain Completed Wound/Incision Problem:Wound Care and/or Skin Problems Goal:Wound/Incision Completed The Aquacel Ag/Mepilex Ag dressing is a non-removable dressing per Dr Romero's orders, and is only allowed to be changed d/t large amounts of drainage or the dressing's adhesive is failing, compromising the surgical site. Pt allowed to shower with dressing intact. Instruct Alteration in GI Function Problem:Gastrointest inal Goal:Gastrointestina l Completed Pt reports no GI issues. Instruct on Alteration in Circulation Problem:Circulation Goal:Circulation Completed Pt instructed on recognizing and managing signs and symptoms of lower leg edema. [facility] Visit Details Visit Type -FIFTH HAND Routine Visi t Discipline -Physical Therapy Problems Problem Start Date Status Goals Interventions Assess and Instruct Home Visit Disciplines: Physical Therapy 09/21/2021 Active 3 goals linked to scheduled/documented interventions 5 goal interventions scheduled/documented in this visit Disease-Specific Rehabilitation Disciplines: Physical Therapy 09/21/2021 Active 1 goal linked to scheduled/documented intervention 1 goal intervention scheduled/documented in this visit Mobility Disciplines: Physical Therapy 09/21/2021 Active 1 goal linked to scheduled/documented intervention 1 goal intervention scheduled/documented in this visit Goals Goal Associated Problem Outcome Goal Met? Visit Notes Pain Assess and Instruct Home Visit No Medications Assess and Instruct Home Visit No Home Care Plan Assess and Instruct Home Visit No Balance Disease-Specific Rehabilitation No Mobility Mobility No Interventions Intervention Associated Problem/Goal Status Variance Visit Notes Pain Management Problem:Assess and Instruct Home Visit Goal:Pain Completed Patient reports: right hip pain Clinician taught: patient Clinician instructed on: pain modulation Patient/caregiver is able to teach back 100% of instruction. Instruct Medication Management Problem:Assess and Instruct Home Visit Goal:Medications Completed Home Visit Med Education: Medication list reconciled. Medication profile and in-home medication list updated with appropriate changes. Discrepanices noted during home visit: none Instructed patient on dosing, purpose, and side effects. Medication education completed today on no change in medication(s). Patient/caregiver is able to teach back 100% of instruction. Falls Problem:Assess and Instruct Home Visit Goal:Home Care Plan Completed Clinician taught: patient 4-10 Patient IS at risk for falls (a score of 6 or greater is a predictor of future falls) and clinician instructed: proper footwear, improved lighting, remove clutter and throw rugs, safe cord/tubing management (O2, IV, Electrical, Pineda), non-slip mats in tubs/showers, handrails/grab bar placement, assistive device usage, keep frequently used items in reach and emergency response system and/or keep phone on you and see TUG Test Patient/caregiver was able to demonstrate 100% via teachback Safety Problem:Assess and Instruct Home Visit Goal:Home Care Plan Completed Assessed patient vulnerability and home safety risks: yes Equipment reviewed yes Patient at risk for harm or abuse no Family members involved in safety plan for Level 2 or 3 Plan for Next Visit Problem:Assess and Instruct Home Visit Goal:Home Care Plan Completed Follow up education for next visit: amb program Skilled intervention at next visit: gait training Balance/Neuromuscular Re-education Problem:Disease-Specif ic Rehabilitation Goal:Balance Completed Patient reports: no falls Clinician taught: patient Clinician instructed on: see TUG test Patient/caregiver is able to teach back 100% of instruction. Instruct Mobility Problem:Mobility Goal:Mobility Completed Patient reports: no recent falls Clinician taught: patient Clinician instructed on: gait training completed to improve kinematics and household ambulation to decrease risk for falls and improve endurance. Skilled transfer training completed to maximize pt safety, increase functional independence, and to decrease falls risk. Patient/caregiver is able to teach back 100% of instruction. [facility] Visit Details Visit Type -ASW SPECIALIST Routine Discipline -Assisted Problems Problem Start Date Status Goals Interventions Assess and Instruct Home Visit Disciplines: Assisted 09/20/2021 Active 1 goal linked to scheduled/documented intervention 4 goal interventions scheduled/documented in this visit Medication Management Disciplines: Assisted 09/20/2021 Active 1 goal linked to scheduled/documented intervention 1 problem intervention scheduled/documented in this visit 1 goal intervention scheduled/documented in this visit Pain Management Disciplines: Assisted 09/20/2021 Active 1 goal linked to scheduled/documented intervention 1 goal intervention scheduled/documented in this visit Goals Goal Associated Problem Outcome Goal Met? Visit Notes Home Care Plan Assess and Instruct Home Visit No Medications Medication Management No Pain Pain Management No Interventions Intervention Associated Problem/Goal Status Variance Visit Notes Falls Problem:Assess and Instruct Home Visit Goal:Home Care Plan Completed Clinician taught: patient and caregiver 4-10 Patient IS at risk for falls (a score of 6 or greater is a predictor of future falls) and clinician instructed: proper footwear, improved lighting, remove clutter and throw rugs, safe cord/tubing management (O2, IV, Electrical, Pineda), non-slip mats in tubs/showers, handrails/grab bar placement, assistive device usage, keep frequently used items in reach and emergency response system and/or keep phone on you Patient/caregiver was able to demonstrate % via teachback Safety Problem:Assess and Instruct Home Visit Goal:Home Care Plan Completed Discharge Planning Problem:Assess and Instruct Home Visit Goal:Home Care Plan Completed Plan for Next Visit Problem:Assess and Instruct Home Visit Goal:Home Care Plan Completed Follow up education for next visit: Skilled intervention at next visit: Instruct Medication Management Problem:Medication Management Goal:Medications Completed Home Visit Med Education: Medication list reconciled. Medication profile and in-home medication list updated with appropriate changes. Discrepanices noted during home visit: none Instructed patient on dosing, purpose, and side effects. Medication education completed today on all medication(s). Patient/caregiver is able to teach back % of instruction. Education, bleeding precautions Problem:Medication Management Completed Assess Pain Characteristics and Current Pain Regimen and Instruct Methods of Pain Relief Problem:Pain Management Goal:Pain Completed [facility] Visit Details Visit Type -FIFTH HAND Routine Visi t Discipline -Physical Therapy Problems Problem Start Date Status Goals Interventions Assess and Instruct Home Visit Disciplines: Physical Therapy 09/21/2021 Active 3 goals linked to scheduled/documented interventions 5 goal interventions scheduled/documented in this visit Disease-Specific Rehabilitation Disciplines: Physical Therapy 09/21/2021 Active 1 goal linked to scheduled/documented intervention 1 goal intervention scheduled/documented in this visit Mobility Disciplines: Physical Therapy 09/21/2021 Active 1 goal linked to scheduled/documented intervention 1 goal intervention scheduled/documented in this visit Goals Goal Associated Problem Outcome Goal Met? Visit Notes Pain Assess and Instruct Home Visit No Medications Assess and Instruct Home Visit No Home Care Plan Assess and Instruct Home Visit No Balance Disease-Specific Rehabilitation No Mobility Mobility No Interventions Intervention Associated Problem/Goal Status Variance Visit Notes Pain Management Problem:Assess and Instruct Home Visit Goal:Pain Completed Patient reports: denies pain Clinician taught: patient Clinician instructed on: denies pain Patient/caregiver is able to teach back 100% of instruction. Instruct Medication Management Problem:Assess and Instruct Home Visit Goal:Medications Completed Home Visit Med Education: Medication list reconciled. Medication profile and in-home medication list updated with appropriate changes. Discrepanices noted during home visit: none Instructed patient on dosing, purpose, and side effects. Medication education completed today on no change in medication(s). Patient/caregiver is able to teach back 100% of instruction. Falls Problem:Assess and Instruct Home Visit Goal:Home Care Plan Completed Clinician taught: patient 4-10 Patient IS at risk for falls (a score of 6 or greater is a predictor of future falls) and clinician instructed: proper footwear, improved lighting, remove clutter and throw rugs, safe cord/tubing management (O2, IV, Electrical, Pineda), non-slip mats in tubs/showers, handrails/grab bar placement, assistive device usage, keep frequently used items in reach and emergency response system and/or keep phone on you and pt with recent THR Patient/caregiver was able to demonstrate 100% via teachback Safety Problem:Assess and Instruct Home Visit Goal:Home Care Plan Completed Assessed patient vulnerability and home safety risks: yes Equipment reviewed yes Patient at risk for harm or abuse no Family members involved in safety plan for Level 2 or 3 Plan for Next Visit Problem:Assess and Instruct Home Visit Goal:Home Care Plan Completed Follow up education for next visit: PT D/C Skilled intervention at next visit: PT D/C Balance/Neuromuscular Re-education Problem:Disease-Specif ic Rehabilitation Goal:Balance Completed Patient reports: no falls Clinician taught: patient Clinician instructed on: see TUG test Patient/caregiver is able to teach back 100% of instruction. Instruct Mobility Problem:Mobility Goal:Mobility Completed Patient reports: no falls Clinician taught: patient Clinician instructed on: gait training completed to improve kinematics and household ambulation to decrease risk for falls and improve endurance. Skilled transfer training completed to maximize pt safety, increase functional independence, and to decrease falls risk. Patient/caregiver is able to teach back 100% of instruction. [facility] Visit Details Visit Type -FIFTH HAND Routine Visi t Discipline -Physical Therapy Problems Problem Start Date Status Goals Interventions Assess and Instruct Home Visit Disciplines: Physical Therapy 09/21/2021 Active 3 goals linked to scheduled/documented interventions 5 goal interventions scheduled/documented in this visit Disease-Specific Rehabilitation Disciplines: Physical Therapy 09/21/2021 Active 1 goal linked to scheduled/documented intervention 1 goal intervention scheduled/documented in this visit Mobility Disciplines: Physical Therapy 09/21/2021 Active 1 goal linked to scheduled/documented intervention 1 goal intervention scheduled/documented in this visit Goals Goal Associated Problem Outcome Goal Met? Visit Notes Pain Assess and Instruct Home Visit No Medications Assess and Instruct Home Visit No Home Care Plan Assess and Instruct Home Visit No Balance Disease-Specific Rehabilitation No Mobility Mobility No Interventions Intervention Associated Problem/Goal Status Variance Visit Notes Pain Management Problem:Assess and Instruct Home Visit Goal:Pain Completed Patient reports: denies pain Clinician taught: patient Clinician instructed on: denies pain Patient/caregiver is able to teach back 100% of instruction. Instruct Medication Management Problem:Assess and Instruct Home Visit Goal:Medications Completed Home Visit Med Education: Medication list reconciled. Medication profile and in-home medication list updated with appropriate changes. Discrepanices noted during home visit: none Instructed patient on dosing, purpose, and side effects. Medication education completed today on no change in medication(s). Patient/caregiver is able to teach back 100% of instruction. Falls Problem:Assess and Instruct Home Visit Goal:Home Care Plan Completed Clinician taught: patient 4-10 Patient IS at risk for falls (a score of 6 or greater is a predictor of future falls) and clinician instructed: proper footwear, improved lighting, remove clutter and throw rugs, safe cord/tubing management (O2, IV, Electrical, Pineda), non-slip mats in tubs/showers, handrails/grab bar placement, assistive device usage, keep frequently used items in reach and emergency response system and/or keep phone on you and pt with recent THR Patient/caregiver was able to demonstrate 100% via teachback Safety Problem:Assess and Instruct Home Visit Goal:Home Care Plan Completed Assessed patient vulnerability and home safety risks: yes Equipment reviewed yes Patient at risk for harm or abuse no Family members involved in safety plan for Level 2 or 3 Plan for Next Visit Problem:Assess and Instruct Home Visit Goal:Home Care Plan Completed Follow up education for next visit: PT D/C Skilled intervention at next visit: PT D/C Balance/Neuromuscular Re-education Problem:Disease-Specif ic Rehabilitation Goal:Balance Completed Patient reports: no falls Clinician taught: patient Clinician instructed on: see TUG test Patient/caregiver is able to teach back 100% of instruction. Instruct Mobility Problem:Mobility Goal:Mobility Completed Patient reports: no falls Clinician taught: patient Clinician instructed on: gait training completed to improve kinematics and household ambulation to decrease risk for falls and improve endurance. Skilled transfer training completed to maximize pt safety, increase functional independence, and to decrease falls risk. Patient/caregiver is able to teach back 100% of instruction. [facility] Visit Details Visit Type -PT Non-OASIS/Dis cipl Discharge Discipline -Physical Therapy Problems Problem Start Date Status Goals Interventions Assess and Instruct Home Visit Disciplines: Physical Therapy 09/21/2021 Resolved on 10/02/2021 3 goals linked to scheduled/documented interventions 5 goal interventions scheduled/documented in this visit Disease-Specific Rehabilitation Disciplines: Physical Therapy 09/21/2021 Resolved on 10/02/2021 1 goal linked to scheduled/documented intervention Mobility Disciplines: Physical Therapy 09/21/2021 Resolved on 10/02/2021 1 goal linked to scheduled/documented intervention 1 goal intervention scheduled/documented in this visit Goals Goal Associated Problem Outcome Goal Met? Visit Notes Pain Assess and Instruct Home Visit Completed Yes Medications Assess and Instruct Home Visit Completed Yes Home Care Plan Assess and Instruct Home Visit Completed Yes Balance Disease-Specific Rehabilitation Completed Yes Mobility Mobility Completed Yes Interventions Intervention Associated Problem/Goal Status Variance Visit Notes Instruct Medication Management Problem:Assess and Instruct Home Visit Goal:Medications Completed Home Visit Med Education: Medication list reconciled. Medication profile and in-home medication list updated with appropriate changes. Discrepanices noted during home visit: none Instructed patient on dosing, purpose, and side effects. Medication education completed today on all medication(s). Patient/caregiver is able to teach back 100% of instruction. Falls Problem:Assess and Instruct Home Visit Goal:Home Care Plan Completed Clinician taught: patient 1-3 Patient is NOT at risk for falls and clinician instructed: asssistive device usage. Patient/caregiver was able to demonstrate 100% via teachback TUG=14 STS=8 Safety Problem:Assess and Instruct Home Visit Goal:Home Care Plan Completed Assessed patient vulnerability and home safety risks: yes Equipment reviewed SPC Patient at risk for harm or abuse NA Family members involved in safety plan for Level 2 or 3 NA Plan for Next Visit Problem:Assess and Instruct Home Visit Goal:Home Care Plan Completed Follow up education for next visit: NA - [facility] PT services Skilled intervention at next visit: Therapy Reassessment Problem:Assess and Instruct Home Visit Goal:Home Care Plan Completed Functional reassessment findings compared to prior assessment: Consistent progress toward all goals Progress towards goals: All goals met Updates made to careplan. Instruct Mobility Problem:Mobility Goal:Mobility Completed Patient reports: mod I with SPC Clinician taught: patient Clinician instructed on: Safety with all mobility Patient/caregiver is able to teach back 100% of instruction. [facility] Visit Details Visit Type -SN HH OASIS Disc harge Discipline -Assisted Problems Problem Start Date Status Goals Interventions Assess and Instruct Home Visit Disciplines: Assisted 09/20/2021 Active 1 goal linked to scheduled/documented intervention 4 goal interventions scheduled/documented in this visit Medication Management Disciplines: Assisted 09/20/2021 Active 1 goal linked to scheduled/documented intervention 1 problem intervention scheduled/documented in this visit 1 goal intervention scheduled/documented in this visit Pain Management Disciplines: Assisted 09/20/2021 Active 1 goal linked to scheduled/documented intervention 1 goal intervention scheduled/documented in this visit Wound Care and/or Skin Problems Disciplines: Assisted 09/20/2021 Active 1 goal linked to scheduled/documented intervention 1 goal intervention scheduled/documented in this visit Goals Goal Associated Problem Outcome Goal Met? Visit Notes Home Care Plan Assess and Instruct Home Visit No Medications Medication Management No Pain Pain Management No Wound/Incision Wound Care and/or Skin Problems No Interventions Intervention Associated Problem/Goal Status Variance Visit Notes Falls Problem:Assess and Instruct Home Visit Goal:Home Care Plan Completed Safety Problem:Assess and Instruct Home Visit Goal:Home Care Plan Completed Assessed patient vulnerability and home safety risks: cane, environmental Equipment reviewed cane Patient at risk for harm or abuse none Family members involved in safety plan for Level 2 or 3 n/a Discharge Planning Problem:Assess and Instruct Home Visit Goal:Home Care Plan Completed d/c today Plan for Next Visit Problem:Assess and Instruct Home Visit Goal:Home Care Plan Completed d/c today Instruct Medication Management Problem:Medication Management Goal:Medications Completed Home Visit Med Education: Medication list reconciled. Medication profile and in-home medication list updated with appropriate changes. Education, bleeding precautions Problem:Medication Management Completed Assess Pain Characteristics and Current Pain Regimen and Instruct Methods of Pain Relief Problem:Pain Management Goal:Pain Completed Wound/Incision Problem:Wound Care and/or Skin Problems Goal:Wound/Incision Completed [facility] Actions Initial evaluation complete to determine need for skilled therapy services. Assessed strength, balance, endurance, transfers, gait. Educated patient on safety with all mobility in home. Discussed POC and goals. Patient agrees to POC. Narratives Reason for Referral: R THR w ith Dr Romero Disciplines Referred:SN/PT Inpatient Stay:09/18/21 - [facility] Medical Hx:OA, sycope, dyslipidemia, L TKR PLOF: Lives with spouse, 1 story home, 2 [address], 1 rail. Independent with all mobiloty and ADLS. Retired. Drives. No falls reported DME:FWW, grab bars, shower chair, Caregiver:Spouse Current Functional Level: Planned PT Frequency:1w1 2w2 Precautions:WBAT RLE Fall Risk: Medication Issues: NA Patient Preferences:Call to schedule Upcoming Appts:10/05/21 Dr Romero [facility] Actions Dressings Clean Dry and inta ct. Added Clindamycin 300 mg 4 times daily for 7 days. Pt has allergic reaction to levaquin PCP prescribed this new medication. Dr Troncoso aware COVID 19 precautions and proper handwashing education provided to patient, voiced understanding. Visit vertification not signed d/t COVID 19 precautions CP assessment, meds reviewed, education provided on safety with ambulation, patient voiced understanding. report given to CM [facility] Actions Reassessment to determine ne ed for continued therapy services. Patient has met all goals and is appropriate for discharge. Narratives Patient has met all goals. I ndependent transfers and mobility. Mod I gait with SPC. documented in this encounter [facility] for visit Narrative* Auth/Cert Specialty Diagnoses / Procedures Referred By Becca lara Referred To Contact Referral ID Status Reason Start Date Expiration Date Visits Re quested Visits Authorized [id number] 1 1 [facility] for visit NarrativeInitial Evaluation . Left Achilles Tendon. [facility] Work Phone: reason for visit NarrativeInitial Evaluation . Left Achilles Tendon. [facility] Work Phone: Assessments Diagnosis Vasovagal syncope - Primary Syncope and collapse Dyslipidemia Other and unspecified hyperlipidemia Summary Purpose Family History No Family History Records FoundNo Family History Records FoundNo Family History Records FoundNo Family History Records FoundNo Family History Records FoundNo Family History Records FoundNo Family History Records FoundNo Family History Records FoundNo Family History Records Found Advance Directives No Advanced Directives Records FoundDocuments on File Type Date Recorded Patient Digital Analyst Expl anation Advance Directives and Living Will Documents on File Type Date Recorded Patient Digital Analyst Expl anation Advance Directives and Living Will Documents on File Type Date Recorded Patient Digital Analyst Expl anation Advance Directives and Livin g Will 08/27/2021 11:00 AM Documents on File Type Date Recorded Patient Digital Analyst Expl anation Advance Directives and Livin g Will 09/06/2021 10:39 AM Documents on File Type Date Recorded Patient Digital Analyst Expl anation Power of Patient Intake Representative Advance Directives and Livin g Will 09/18/2021 6:32 AM Latest Code Status on File Code Status Date Activated Date Inactivated Comments Full Code 09/18/2021 10:40 AM 09/19/2021 4:18 PM Documents on File Type Date Recorded Patient Digital Analyst Expl anation Power of Patient Intake Representative Advance Directives and Livin g Will 09/18/2021 6:32 AM Latest Code Status on File Code Status Date Activated Date Inactivated Comments Full Code 09/18/2021 10:40 AM 09/19/2021 4:18 PM Documents on File Type Date Recorded Patient Digital Analyst Expl anation Power of Patient Intake Representative Advance Directives and Livin g Will 09/25/2021 2:28 PM Power of Patient Intake Representative 09/25/2021 2:28 PM Advance Directives and Livin g Will 09/18/2021 6:32 AM Documents on File Type Date Recorded Patient Digital Analyst Expl anation Power of Patient Intake Representative Advance Directives and Livin g Will 09/25/2021 2:28 PM Power of Patient Intake Representative 09/25/2021 2:28 PM Advance Directives and Livin g Will 09/18/2021 6:32 AM Documents on File Type Date Recorded Patient Digital Analyst Expl anation Power of Patient Intake Representative Advance Directives and Livin g Will 09/25/2021 2:28 PM Power of Patient Intake Representative 09/25/2021 2:28 PM Latest Code Status on File Code Status Date Activated Date Inactivated Comments Full Code 09/18/2021 10:40 AM 09/19/2021 4:18 PM Reason for Referral Specialty Diagnoses / Procedures Referred By Contac t Referred To Contact Rehabilitation Diagnoses Osteoarthritis of right hip, unspecified osteoarthritis type Arnulfo Umaña, [employer] [address] [place] [address] [facility] [address] [place] [address] Referral ID Status Reason Start Date Expiration Date Visits Requested Visits Authorized [id number] Authorized Specialty Services Required/Pat ient's Best Interest 08/07/2021 08/07/2022 1 1 Medications Administered Section Active Administered Medications - up to 3 most recent administrations Medication Order MAR Action Action Date Dose Rate Site PHENYLephrine 2.5 % 1 Drop (AK-DILATE, ADELA-SYNEPHRINE) 1 Drop, BOTH EYES, DIRECTED, Starting on Fri09/18/22 at 0900, Until Fri09/18/22 at 2058, Administer for dilation PROTECT FROM LIGHT Given 09/18/2022 9:00 AM EDT 1 Drop tropicamide 1 % 1 Drop (MYDRIACYL) 1 Drop, BOTH EYES, DIRECTED, Starting on Fri09/18/22 at 0900, Until Fri09/18/22 at 2058, Administer for dilation Given 09/18/2022 9:00 AM EDT 1 Drop Additional Source Comments Assessment & Plan Note - Nilson Fernandez MD - 06/16/2017 11:22 AM ESTAssessment & Plan Note - Nilson Fernandez MD - 06/16/2017 11:20 AM EST Miscellaneous Notes (unrecog nized section and content) Associated Problem(s): Dyslipidemia Currently on fenofibrate and atorvastatin managed by Dr. Gan Associated Problem(s): Vasovagal syncope Similar to previous episodes where he was likely volume depleted. He admits that he did not eat or drink well prior to this most recent event. He had an extensive evaluation in the past including consultation with 1 of our electrophysiologists. He has not had associated bradycardia with this. We reviewed that this is likely related to venous dilatation with hypotension. I recommended no further testing and recommended staying better hydrated and even consider compression stockings.in this encounter (unrecognized sect ion and content) No Status Records FoundNo Status Records FoundNo Status Records FoundNo Status Records FoundNo Status Records FoundNo Status Records FoundNo Status Records FoundNo Status Records FoundNo Status Records Found INFORMATION SOURCE (unrecogn ized section and content) DATE CREATED AUTHOR AUTHOR'S ORGANIZ ATION 02/08/2018 [facility] DATE CREATED AUTHOR AUTHOR'S ORGANIZ ATION 09/17/2021 [facility] DATE CREATED AUTHOR AUTHOR'S ORGANIZ ATION 10/06/2021 [facility] DATE CREATED AUTHOR AUTHOR'S ORGANIZ ATION 03/26/2022 [facility] DATE CREATED AUTHOR AUTHOR'S ORGANIZ ATION 09/17/2022 [facility] DATE CREATED AUTHOR AUTHOR'S ORGANIZ ATION 09/20/2022 [facility] DATE CREATED AUTHOR AUTHOR'S ORGANIZ ATION 02/20/2023 [facility] DATE CREATED AUTHOR AUTHOR'S ORGANIZ ATION 02/20/2023 [facility] Reason for Visit (unrecogniz ed section and content) Specialty Diagnoses / Procedures Referred By Contac t Referred To Contact Referral ID Status Reason Start Date Expiration Date Visits Re quested Visits Authorized [id number] 1 1 Reason Comments Pain Specialty Diagnoses / Procedures Referred By Contac t Referred To Contact Sports Medicine Diagnoses Right hip pain Jeff Olivera MD [address] [place] [address] Arnulfo Umaña, [employer] [address] [place] [address] Referral ID Status Reason Start Date Expiration Date Visits Re quested Visits Authorized [id number] Closed 07/27/2021 07/27/2022 1 1 Reason Comments Physical Therapy Specialty Diagnoses / Procedures Referred By Contac t Referred To Contact Rehabilitation Diagnoses Osteoarthritis of right hip, unspecified osteoarthritis type Arnulfo Umaña, [employer] [address] [place] [address] [place] [address] [address] [place] [address] Referral ID Status Reason Start Date Expiration Date Visits Requested Visits Authorized [id number] Authorized Specialty Services Required/Pat ient's Best Interest 08/07/2021 08/07/2022 13 199 Specialty Diagnoses / Procedures Referred By Contac t Referred To Contact Rehabilitation Diagnoses Osteoarthritis of right hip, unspecified osteoarthritis type Arnulfo Umaña, [employer] [address] [place] [address] [facility] [address] [place] [address] Reason Comments Pre-op Exam Right hip Reason Comments Hip Pain Reason Comments Follow-up Suture / Staple Removal Reason Comments Wound Check Follow-up Reason Onset Date Comments Medication Refill 11/02/2021 Reason Comments Follow-up Reason Comments Yearly Exam Reason Comments Pain Reason Onset Date Comments Medication Refill 02/19/2023 Care Teams (unrecognized sec tion and content) Platform Inspector Relationship Specialty Start Date End Date Jeff Olivera MD [address] [place] [address] PCP - General Family Medicine 08/01/21 Platform Inspector Relationship Specialty Start Date End Date Jeff Olivera MD [address] [place] [address] PCP - General Family Medicine 08/01/21 Platform Inspector Relationship Specialty Start Date End Date Jeff Olivera MD [address] [place] [address] PCP - General Family Medicine 08/01/21 Platform Inspector Relationship Specialty Start Date End Date Jeff Olivera MD [address] [place] [address] PCP - General Family Medicine 08/01/21 Platform Inspector Relationship Specialty Start Date End Date Jeff Olivera MD [address] [place] [address] PCP - General Family Medicine 08/01/21 Platform Inspector Relationship Specialty Start Date End Date Jeff Olivera MD [address] [place] [address] PCP - General Family Medicine 08/01/21 Platform Inspector Relationship Specialty Start Date End Date Jeff Olivera MD [address] [place] [address] PCP - General Family Medicine 08/01/21 Jackie Romero MD [address] [place] [address] Consulting Physician Orthopedic Surgery 09/06/21 Platform Inspector Relationship Specialty Start Date End Date Jeff Olivera MD [address] [place] [address] PCP - General Family Medicine 08/01/21 Jackie Romero MD [address] [place] [address] Consulting Physician Orthopedic Surgery 09/06/21 Platform Inspector Relationship Specialty Start Date End Date Jeff Olivera MD [address] [place] [address] PCP - General Family Medicine 08/01/21 Jackie Romero MD [address] [place] [address] Consulting Physician Orthopedic Surgery 09/06/21 Platform Inspector Relationship Specialty Start Date End Date Jeff Olivera MD [address] [place] [address] PCP - General Family Medicine 08/01/21 Jackie Romero MD [address] [place] [address] Consulting Physician Orthopedic Surgery 09/06/21 Platform Inspector Relationship Specialty Start Date End Date Jeff Olivera MD [address] [place] [address] PCP - General Family Medicine 08/01/21 Jackie Romero MD [address] [place] [address] Consulting Physician Orthopedic Surgery 09/06/21 Platform Inspector Relationship Specialty Start Date End Date Jeff Olivera MD [address] [place] [address] PCP - General Family Medicine 08/01/21 Jackie Romero MD [address] [place] [address] Consulting Physician Orthopedic Surgery 09/06/21 Platform Inspector Relationship Specialty Start Date End Date Jeff Olivera MD [address] [place] [address] PCP - General Family Medicine 08/01/21 Jackie Romero MD [address] [facility] [place] [address] Consulting Physician Orthopedic Surgery 09/06/21 Platform Inspector Relationship Specialty Start Date End Date Jeff Olivera MD [address] [place] [address] PCP - General Family Medicine 08/01/21 Jackie Romero MD [address] [place] [address] Consulting Physician Orthopedic Surgery 09/06/21 Platform Inspector Relationship Specialty Start Date End Date Jeff Olivera MD [address] [place] [address] PCP - General Family Medicine 08/01/21 Jackie Romero MD [address] [place] [address] Consulting Physician Orthopedic Surgery 09/06/21 Platform Inspector Relationship Specialty Start Date End Date Jeff Olivera MD [address] [place] [address] PCP - General Family Medicine 08/01/21 Jackie Romero MD [address] [place] [address] Consulting Physician Orthopedic Surgery 09/06/21 Platform Inspector Relationship Specialty Start Date End Date Jeff Olivera MD [address] [place] [address] PCP - General Family Medicine 08/01/21 Jackie Romero MD [address] [place] [address] Consulting Physician Orthopedic Surgery 09/06/21 Platform Inspector Relationship Specialty Start Date End Date Jeff Olivera MD [address] [place] [address] PCP - General Family Medicine 08/01/21 Jackie Romero MD [address] [place] [address] Consulting Physician Orthopedic Surgery 09/06/21 Platform Inspector Relationship Specialty Start Date End Date Jeff Olivera MD [address] [place] [address] PCP - General Family Medicine 08/01/21 Jackie Romero MD [address] [place] [address] Consulting Physician Orthopedic Surgery 09/06/21 Platform Inspector Relationship Specialty Start Date End Date Jeff Olivera MD [address] [place] [address] PCP - General Family Medicine 08/01/21 Jackie Romero MD [address] [place] [address] Consulting Physician Orthopedic Surgery 09/06/21 Platform Inspector Relationship Specialty Start Date End Date Jeff Olivera [address] [place] [place] [address] PCP - General Family Medicine 05/16/20 Platform Inspector Relationship Specialty Start Date End Date Jeff Olivera MD [address] [place] [address] PCP - General Family Medicine 08/01/21 Jackie Romero MD [address] [place] [address] Consulting Physician Orthopedic Surgery 09/06/21 Platform Inspector Relationship Specialty Start Date End Date Jeff Olivera MD [address] [place] [address] PCP - General Family Medicine 08/01/21 Jackie Romero MD [address] [place] [address] Consulting Physician Orthopedic Surgery 09/06/21 Source Comments (unrecognize d section and content) In the event this informatio n is protected by the Federal Confidentiality of Alcohol and Drug Abuse Patient Records regulations: The Federal rules restrict any use of the information to criminally investigate or prosecute any alcohol or drug abuse patient.[facility] FOR RECORDS PERTAINING TO PATIENTS WHO ARE OR HAVE BEEN ENROLLED IN A CHEMICAL DEPENDENCY/SUBSTANCEABUSE PROGRAM, SOME INFORMATION MAY BE OMITTED. This clinical summary was aggregated from multiple sources. Caution should be exercised in using it in the provision of clinical care. This summary normalizes information from multiple sources, and as a consequence, information in this document may materially change the coding, format and clinical context of patient data. In addition, data may be omitted in some cases. CLINICAL DECISIONS SHOULD BE BASED ON THE PRIMARY CLINICAL RECORDS. [facility] [employer] [facility]. provides no warranty or guarantee of the accuracy or completeness of information in this document.
[2023-06-25 10:36] LABS: Absolute Lymphocyte Count 1.95 X10^3/uL (0.83-4.51); Absolute Neutrophil Count 3.9 X10^3/uL (2.0-7.7); Basophil# 0.04 X10^3/uL; Basophil% 0.6 % (0-1); Eosinophil# 0.13 X10^3/uL; Hematocrit 45.9 % (40-54); Hemoglobin 14.8 g/dL (13.0-16.5); Lymphocyte # 1.95 X10^3/ul (0.83-4.51); Lymphocyte % 29.8 % (19-41); Mean Corp Hgb Conc 32.2 g/dL (32-36); Mean Corpuscular Hgb 29.8 pg (27.0-32.0); Mean Corpuscular Volume 92.4 fL (80-94); Mean Platelet Vol. 9.4 fl (6.2-12.0); Monocyte# 0.54 X10^3/uL; Monocyte% 8.3 % (0-10); NRBC Flagged by Analyzer 0 % (0-5); Neutrophil # 3.86 X10^3/uL (2.7-7.7); Platelet Count 277 K/mm3 (150-450); RBC Distribution Width CV 13.2 % (11.6-14.6); RBC Distribution Width SD 44.3 fl (35.1-43.9); Red Blood Count 4.97 M/mm3 (4.6-6.2); White Blood Count 6.5 K/mm3 (4.4-11.0)
[2023-06-25 11:45] LABS: ALB/GLOB Ratio 1.2 RATIO (0.9-2.4); AST(SGOT) 27 U/L (15-37); Alanine Aminotransfer ALT/SGPT 26 U/L (16-61); Albumin, Serum 3.7 g/dL (3.2-5.0); Alkaline Phosphatase 49 U/L (45-117); Anion Gap 6 (5-15); BUN 21 mg/dL (7-18); BUN/Creat Ratio 17.5 RATIO (10-20); Calcium,Total 9.5 mg/dL (8.5-10.1); Chloride 108 mmol/L (98-107); Cholesterol 128 mg/dL (200); EST Glomerular Filtration Rate 63 mL/min (>60); Est Glom Filt Rate - Afr Amer 77 mL/min (>60); Globulin 3.2 g/dL (2.2-4.2); Glucose 108 mg/dL (74-106); High Density Lipoprotein 24 mg/dL; PSA,Total - Annual Screen 1.12 ng/mL (0.00-4.00); Potassium 4.1 mmol/L (3.5-5.1); Protein, Total 6.9 g/dL (6.4-8.2); Sodium Level 137 mmol/L (136-145); Triglycerides 113 mg/dL; Very Low Density Lipoprotein 23 mg/dL (5-40)
[2023-06-25 12:18] LABS: Vitamin D,25 Hydroxy 36.4 ng/mL
== END | disposition home or self-care (01) ==
PROVIDERS: PCP Family Medicine; Visit Provider Family Medicine
DX: E78.00 Pure hypercholesterolemia, unspecified (principal); Z12.5 Encounter for screening for malignant neoplasm of prostate
CPT/HCPCS: 36415; 80053; 80061; 82306; 84153; 85025; G0103

== ENCOUNTER → 2023-06-27 | Outpatient (CLI) | payer MEDICARE, SELFPAY ==
--- NOTE | 2023-06-27 07:54 | CDU_ITS ---
Reason For Study: Syncope Rt. Velocities/BP Lt. Velocities/BP Prox CCA 71.1/11.6 cm/sec. Prox CCA 81.7/12.4 cm/sec. Mid CCA 71.1/15.4 cm/sec. Mid CCA 67.4/14.6 cm/sec. Dist CCA 58.9/17.3 cm/sec. Dist CCA 65.2/14.6 cm/sec. Prox ICA 50.4/14.5 cm/sec. Prox ICA 57.5/16.8 cm/sec. Mid ICA 63.6/17.3 cm/sec. Mid ICA 78.4/22.3 cm/sec. Dist ICA 61.7/15.2 cm/sec. Dist ICA 66.3/20.1 cm/sec. Rt. ICA/CCA = 0.89. Lt. ICA/CCA = 1.16. Prox ECA 62.6/7.8 cm/sec. Prox ECA 58.6/6.9 cm/sec. Rt. Vert. 46.5/13.5 cm/sec. Lt. Vert. 49.8/13.5 cm/sec. Right Extracranial There is heterogeneous, smooth atherosclerotic plaque noted in the right common carotid artery. There is heterogeneous, irregular atherosclerotic plaque noted in the right internal carotid artery. There is intimal thickening but no significant atherosclerotic plaque noted in the right external carotid artery. Antegrade flow is noted in the right vertebral artery. Left Extracranial There is heterogeneous, irregular atherosclerotic plaque noted in the left common carotid artery. There is heterogeneous, irregular atherosclerotic plaque noted in the left internal carotid artery. There is intimal thickening but no significant atherosclerotic plaque noted in the left external carotid artery. Antegrade flow is noted in the left vertebral artery. Procedure Carotid Duplex [id number]. This is a Carotid Duplex examination using B-mode, color flow and specral Doppler. Exam performed in department. VL/Carotid Duplex Ultrasound Interpretation Summary Minimal irregular plaque at the proximal right internal carotid artery with les s than 50% stenosis Less than 50% stenosis right external carotid artery Irregular plaque of the left common carotid and proximal internal carotid arter y Less than 50% stenosis left internal carotid artery Less than 50% stenosis left external carotid artery Patent antegrade vertebral arteries bilaterally Ordering Physician: Romie Vasquez Referring Physician: Romie Vasquez Performed By: Estefania Billings RVT
--- OUTSIDE RECORDS SUMMARY | 2023-06-27 08:14 | XMS RPT_ITS | CCD ---
Author Name Unknown Address [address] [place] [address] Organization [facility] Care Team Providers Care Electric Arc Welder Name Role Phone Jeff Gan Unavailable Benedict Leon Unavailable Unavailable Benedict Leon Unavailable Unavailable Jeff Gan Unavailable Unavailable Benedict Leon Unavailable Unavailable Benedict Leon Unavailable Unavailable Jeff Gan Unavailable Unavailable Jeff Mcknight MD Primary Care Provider Jackie Romero MD Unavailable JEFF MCKNIGHT Primary Care Unavailable ARNULFO UMAÑA Attending Unavailable ARNULFO UMAÑA Referring Unavailable JACKIE ROMERO Admitting Unavailab le JACKIE ROMERO Referring Unavailab le completed today on no change in medication(s). [...] 100% of instruction. [facility] Visit Details Visit Type -MACHINE STAMPER Routine Visi t Discipline -Physical Therapy Problems [...] 100% of instruction. [facility] Visit Details [...] Completed Follow up education for next visit: JUAN [facility]SE - [facility]AK[facility] PT services Skilled intervention at [...] 100% of instruction. [facility] Visit Details Visit Type -SN HH OASIS Disc harge Discipline -Long Term Problems Problem Start Date Status Goals Interventions Assess and Instruct Home Visit Disciplines: Long Term 09/20/2021 Active 1 goal linked to scheduled/documented intervention 4 goal interventions scheduled/documented in this visit Medication Management Disciplines: Long Term 09/20/2021 Active 1 goal linked to scheduled/documented intervention 1 problem intervention scheduled/documented in this visit 1 goal intervention scheduled/documented in this visit Pain Management Disciplines: Long Term 09/20/2021 Active 1 goal linked to scheduled/documented intervention 1 goal intervention scheduled/documented in this visit Wound Care and/or Skin Problems Disciplines: Long Term 09/20/2021 Active 1 goal linked to scheduled/documented [...] Problems Goal:Wound/Incision Completed [facility] Actions Initial evaluation complete to determine need for skilled therapy services. Assessed strength, balance, endurance, transfers, gait. Educated patient on safety with all mobility in home. Discussed POC and goals. Patient agrees to POC. Narratives Reason for Referral: R THR w ith Dr Romero Disciplines Referred:SN/PT Inpatient Stay:09/18/21 - [facility] Medical Hx:OA, sycope, dyslipidemia, L TKR PLOF: Lives with spouse, 1 story home, 2 [address], 1 rail. Independent with all mobiloty and ADLS. Retired. Drives. No falls reported DME:FWW, grab bars, shower chair, Caregiver:Spouse Current Functional Level: Planned PT Frequency:1w1 2w2 Precautions:WBAT RLE Fall Risk: Medication Issues: NA Patient Preferences:Call to schedule Upcoming Appts:10/05/21 Dr Romero [facility] Actions Dressings Clean Dry [...] given to CM [facility] Actions Reassessment to determine ne ed for continued therapy services. Patient has met all goals and is appropriate for discharge. Narratives Patient has met all goals. I ndependent transfers and mobility. Mod I gait with SPC. [facility] N[facility]* Auth/Cert Specialty Diagnoses / Procedures Referred By Becca lara Referred To Contact Referral ID Status Reason Start Date Expiration Date Visits Re quested Visits Authorized [id number] 1 [facility] NarrativeInitial Evaluation . Left Achilles Tendon. [facility] Work Phone: reason for visit NarrativeInitial Evaluation . Left Achilles Tendon. [facility] Work Phone: Assessments Diagnosis Vasovagal syncope - [...] FoundDocuments on File Type Date Recorded Patient Freight Caller Expl anation Advance Directives and Living Will Documents on File Type Date Recorded Patient Freight Caller Expl anation Advance Directives and Living Will Documents on File Type Date Recorded Patient Freight Caller Expl anation Advance Directives and Livin g Will 08/27/2021 11:00 AM Documents on File Type Date Recorded Patient Freight Caller Expl anation Advance Directives and Livin g Will 09/06/2021 10:39 AM Documents on File Type Date Recorded Patient Freight Caller Expl anation Power of Traffic Chief Advance Directives and Livin g Will 09/18/2021 6:32 AM Latest Code Status on File Code Status Date Activated Date Inactivated Comments Full Code 09/18/2021 10:40 AM 09/19/2021 4:18 PM Documents on File Type Date Recorded Patient Freight Caller Expl anation Power of Traffic Chief Advance Directives and Livin g Will 09/18/2021 6:32 AM Latest Code Status on File Code Status Date Activated Date Inactivated Comments Full Code 09/18/2021 10:40 AM 09/19/2021 4:18 PM Documents on File Type Date Recorded Patient Freight Caller Expl anation Power of Traffic Chief Advance Directives and Livin g Will 09/25/2021 2:28 PM Power of Traffic Chief 09/25/2021 2:28 PM Advance Directives and Livin g Will 09/18/2021 6:32 AM Documents on File Type Date Recorded Patient Freight Caller Expl anation Power of Traffic Chief Advance Directives and Livin g Will 09/25/2021 2:28 PM Power of Traffic Chief 09/25/2021 2:28 PM Advance Directives and Livin g Will 09/18/2021 6:32 AM Documents on File Type Date Recorded Patient Freight Caller Expl anation Power of Traffic Chief Advance Directives and Livin g Will 09/25/2021 2:28 PM Power of Traffic Chief 09/25/2021 2:28 PM Latest Code Status on File Code Status Date Activated Date Inactivated Comments Full Code 09/18/2021 10:40 AM 09/19/2021 4:18 PM Reason for Referral Specialty Diagnoses / Procedures Referred By Becca lara Referred To Contact Rehabilitation Diagnoses Osteoarthritis of right hip, unspecified osteoarthritis type Arnulfo Umaña, AUTOMOBILE SERVICE STATION ATTENDANT [address] [place] [id number] [address] [address] [place] [address] Referral ID Status Reason Start Date Expiration Date Visits Requested Visits Authorized [id number] Authorized Specialty Services Required/Pat ient's Best Interest [...] DATE CREATED AUTHOR AUTHOR'S ORGANIZ ATION 02/08/2018 [facility] DATE CREATED AUTHOR AUTHOR'S ORGANIZ ATION 09/17/2021 [facility] DATE CREATED AUTHOR AUTHOR'S ORGANIZ ATION 10/06/2021 [facility] DATE CREATED AUTHOR AUTHOR'S ORGANIZ ATION 03/26/2022 [email or web address] DATE CREATED AUTHOR AUTHOR'S ORGANIZ ATION 09/17/2022 [facility] DATE CREATED AUTHOR AUTHOR'S ORGANIZ ATION 09/20/2022 [facility] DATE CREATED AUTHOR AUTHOR'S ORGANIZ ATION 02/20/2023 [facility] DATE CREATED AUTHOR AUTHOR'S ORGANIZ ATION 02/20/2023 [facility] Reason for Visit (unrecogniz ed section and content) Specialty Diagnoses / Procedures Referred By Becca lara Referred To Contact Referral ID Status Reason Start Date Expiration Date Visits Re quested Visits Authorized [id number] 1 1 Reason Comments Pain Specialty Diagnoses / Procedures Referred By Contac t Referred To Contact Sports Medicine Diagnoses Right hip pain Jeff Mcknight MD [address] [place] [address] ChasidyArnulfo, AUTOMOBILE SERVICE STATION ATTENDANT [address] [place] [address] Referral ID Status Reason Start Date Expiration Date Visits Re quested Visits Authorized [id number] Closed 07/27/2021 07/27/2022 1 1 Reason Comments Physical Therapy Specialty Diagnoses / Procedures Referred By Contac t Referred To Contact Rehabilitation Diagnoses Osteoarthritis of right hip, unspecified osteoarthritis type UmañaArnulfo, AUTOMOBILE SERVICE STATION ATTENDANT [address] [place] [address] [facility] [address] [phone] Referral ID Status Reason Start Date Expiration Date Visits Requested Visits Authorized [id number] Authorized Specialty Services Required/Willa horne's Best Interest 08/07/2021 08/07/2022 13 199 Specialty Diagnoses / Procedures Referred By Contac t Referred To Contact Rehabilitation Diagnoses Osteoarthritis of right hip, unspecified osteoarthritis type ChasidyArnulfo, AUTOMOBILE SERVICE STATION ATTENDANT [address] [place] [address] [facility] [address] [place] [address] Reason Comments Pre-op Exam Right hip Reason Comments Hip Pain Reason Comments Follow-up Suture / Staple Removal Reason Comments Wound Check Follow-up Reason Onset Date Comments Medication Refill 11/02/2021 Reason Comments Follow-up Reason Comments Yearly Exam Reason Comments Pain Reason Onset Date Comments Medication Refill 02/19/2023 Care Teams (unrecognized sec tion and content) Electric Arc Welder Relationship Specialty Start Date End Date Jeff Mcknight MD [address] [place] [address] PCP - General Family Medicine 08/01/21 Electric Arc Welder Relationship Specialty Start Date End Date Jeff Mcknight MD [address] [place] [address] PCP - General Family Medicine 08/01/21 Electric Arc Welder Relationship Specialty Start Date End Date Jeff Mcknight MD [address] [place] [address] PCP - General Family Medicine 08/01/21 Electric Arc Welder Relationship Specialty Start Date End Date Jeff Mcknight MD [address] [place] [address] PCP - General Family Medicine 08/01/21 Electric Arc Welder Relationship Specialty Start Date End Date Jeff Mcknight MD [address] [place] [address] PCP - General Family Medicine 08/01/21 Electric Arc Welder Relationship Specialty Start Date End Date Jeff Mcknight MD [address] [place] [address] PCP - General Family Medicine 08/01/21 Electric Arc Welder Relationship Specialty Start Date End Date Jeff Mcknight MD [address] [place] [address] PCP - General Family Medicine 08/01/21 Jackie Romero MD [address] [place] [address] Consulting Physician Orthopedic Surgery 09/06/21 Electric Arc Welder Relationship Specialty Start Date End Date Jeff Mcknight MD [address] [place] [address] PCP - General Family Medicine 08/01/21 Jackie Romero MD [address] [place] [address] Consulting Physician Orthopedic Surgery 09/06/21 Electric Arc Welder Relationship Specialty Start Date End Date Jeff Mcknight MD [address] [place] [address] PCP - General Family Medicine 08/01/21 Jackie Romero MD [address] [place] [address] Consulting Physician Orthopedic Surgery 09/06/21 Electric Arc Welder Relationship Specialty Start Date End Date Jeff Mcknight MD [address] [place] [address] PCP - General Family Medicine 08/01/21 Jackie Romero MD [address] [place] [address] Consulting Physician Orthopedic Surgery 09/06/21 Electric Arc Welder Relationship Specialty Start Date End Date Jeff Mcknight MD [address] [place] [address] PCP - General Family Medicine 08/01/21 Jackie Romero MD [address] [place] [address] Consulting Physician Orthopedic Surgery 09/06/21 Electric Arc Welder Relationship Specialty Start Date End Date Jeff Mcknight MD [address] [place] [address] PCP - General Family Medicine 08/01/21 Jackie Romero MD [address] [place] [address] Consulting Physician Orthopedic Surgery 09/06/21 Electric Arc Welder Relationship Specialty Start Date End Date Jeff Mcknight MD [address] [place] [address] PCP - General Family Medicine 08/01/21 Jackie Romero MD [address] [facility] [address] Consulting Physician Orthopedic Surgery 09/06/21 Electric Arc Welder Relationship Specialty Start Date End Date Jeff Mcknight MD [address] [place] [address] PCP - General Family Medicine 08/01/21 Jackie Romero MD [address] [facility] [place] [address] Consulting Physician Orthopedic Surgery 09/06/21 Electric Arc Welder Relationship Specialty Start Date End Date Jeff Mcknight MD [address] [place] [address] PCP - General Family Medicine 08/01/21 Jackie Romero MD [address] [place] [address] Consulting Physician Orthopedic Surgery 09/06/21 Electric Arc Welder Relationship Specialty Start Date End Date Jeff Mcknight MD [address] [place] [address] PCP - General Family Medicine 08/01/21 Jackie Romero MD [address] [place] [address] Consulting Physician Orthopedic Surgery 09/06/21 Electric Arc Welder Relationship Specialty Start Date End Date Jeff Mcknight MD [address] [place] [address] PCP - General Family Medicine 08/01/21 Jackie Romero MD [address] [facility] [place] [address] Consulting Physician Orthopedic Surgery 09/06/21 Electric Arc Welder Relationship Specialty Start Date End Date Jeff Mcknight MD [address] [place] [address] PCP - General Family Medicine 08/01/21 Jackie [facility] MD [address] [facility] [place] [address] Consulting Physician Orthopedic Surgery 09/06/21 Electric Arc Welder Relationship Specialty Start Date End Date Jeff Mcknight MD [address] [place] [address] PCP - General Family Medicine 08/01/21 Jackie Romero MD [address] [place] [address] Consulting Physician Orthopedic Surgery 09/06/21 Electric Arc Welder Relationship Specialty Start Date End Date Jeff Mcknight MD [address] [place] [address] PCP - General Family Medicine 08/01/21 Jackie Romero MD [address] [place] [address] Consulting Physician Orthopedic Surgery 09/06/21 Electric Arc Welder Relationship Specialty Start Date End Date Jeff Mcknight [address] [place] [address] PCP - General Family Medicine 05/16/20 Electric Arc Welder Relationship Specialty Start Date End Date Jeff Mcknight MD [address] [place] [address] PCP - General Family Medicine 08/01/21 Jackie Romero MD [address] [place] [address] Consulting Physician Orthopedic Surgery 09/06/21 Electric Arc Welder Relationship Specialty Start Date End Date Jeff Mcknight MD [address] [place] [address] PCP - General Family Medicine 08/01/21 Jackie Romero MD [address] [place] [address] Consulting Physician Orthopedic Surgery 09/06/21 Source Comments (unrecognize d section and content) In the event this informatio n is protected by the Federal Confidentiality of Alcohol and Drug Abuse Patient Records regulations: The Federal rules restrict any use of the information to criminally investigate or prosecute any alcohol or drug abuse patient.[facility] FOR RECORDS PERTAINING TO PATIENTS WHO [...] BE BASED ON THE PRIMARY CLINICAL RECORDS. [employer] provides no warranty or guarantee of the accuracy or completeness of information in this document.
== END | disposition home or self-care (01) ==
PROVIDERS: PCP Family Medicine; Referring Provider Family Medicine; Visit Provider Family Medicine
DX: R55 Syncope and collapse (principal)
CPT/HCPCS: 93880